=== PATIENT | male | born 1955 | race Caucasian/White ===

== ENCOUNTER → 2017-11-05 08:03 | Outpatient (CLI) | payer OTHER, SELFPAY ==
[2017-11-05 09:01] LABS: Add Manual Diff / Slide Review NO; Basophils Percent Auto 0.5 % (0-2); Eosinophils Percent Auto 1.9 % (2-4); Hematocrit 41.7 % (41-53); Hemoglobin 14.3 g/dL (13.5-17.5); Lymphocytes Percent Auto 20.1 % (25-40); Mean Corpuscular HGB Conc 34.4 % (30-36); Mean Corpuscular Hemoglobin 29.7 PG (26-34); Mean Corpuscular Volume 86.5 fL (80-100); Monocytes Percent Auto 7.5 % (3-14); Neutrophils Absolute Auto 7000 /uL (3000-5900); Platelet Count 207 X10^3/uL (150-400); Red Blood Cell Count 4.83 X10^6/uL (4.5-5.9); Red Cell Distribution Width 13.7 % (11.6-14.8); White Blood Cell Count 10.1 X10^3/uL (4.5-11.0)
[2017-11-05 09:07] LABS: Hemoglobin A1C% w Est Avg Glu 7.8 % (4.0-6.0)
[2017-11-05 09:08] LABS: Alanine Aminotransferase 39 IU/L (21-72); Albumin 4.3 g/dL (3.5-5.0); Albumin Globulin Ratio 1.3 (1.0-2.8); Alkaline Phosphatase 59 U/L (38-126); Aspartate Aminotransferase 20 IU/L (17-59); BUN Creatinine Ratio 31.3 (6-22); Bilirubin Total 0.4 mg/dL (0.2-1.3); Blood Urea Nitrogen 25 mg/dL (9-20); Calcium 9.3 mg/dL (8.4-10.2); Carbon Dioxide 26 mmol/L (22-32); Chloride 108 mmol/L (98-107); Cholesterol 134 mg/dL (140-199); Estimated Glomerular Filt Rate > 60.0 mL/min (>60); Globulin 3.2 g/dL (1.7-4.1); Glucose 164 mg/dL (80-110); HDL Cholesterol 30 mg/dL (40-60); HEMOLYSIS < 15 (0-50); LDL Cholesterol Calculated 53 mg/dL (<100); Potassium 4.3 mmol/L (3.4-5.1); Sodium 147 mmol/L (137-145); Total Protein 7.5 g/dL (6.3-8.2); Triglycerides 254 mg/dL (35-150)
[2017-11-05 09:34] LABS: Prostate Specific Antigen 0.991 ng/mL (0.10-4.00)
[2017-11-05 09:46] LABS: Thyroid Stimulating Hormone 3.48 uIU/mL (0.47-4.68)
== END ==
PROVIDERS: PCP Family Medicine; Visit Provider Family Medicine
DX: I10 Essential (primary) hypertension (principal); E78.2 Mixed hyperlipidemia; N40.1 Benign prostatic hyperplasia with lower urinary tract symptoms; N13.8 Other obstructive and reflux uropathy; E11.9 Type 2 diabetes mellitus without complications
CPT/HCPCS: 36415; 80053; 80061; 83036; 84153; 84443; 85025

== ENCOUNTER → 2017-12-11 08:23 | Outpatient (CLI) | payer OTHER, SELFPAY ==
--- NOTE | 2017-12-11 08:25 | DI.US.S_ITS ---
PROCEDURE: US EXTREMELY NONVASC UPPER RT INDICATIONS: right mass in armpit TECHNIQUE: Real-time scanning was performed of the right axilla, with image documentation. COMPARISON: None. FINDINGS: No abnormality found. IMPRESSION: No lesion identified. It is possible that a lipoma is present as cause of the current symptomatology. If clinical concerns persist or increase MR scanning with contrast may be warranted. MR scanning can detect the boundaries of a lipoma that may not be identifiable by ultrasound. A solid or cystic mass is not seen. Dictated by: Seferino Deutsch M.D. on 12/11/2017 at 9:42 Approved by: Seferino Deutsch M.D. on 12/11/2017 at 9:43
== END ==
PROVIDERS: PCP Family Medicine; Visit Provider Family Medicine
DX: R22.31 Localized swelling, mass and lump, right upper limb (principal)
CPT/HCPCS: 76882

== ENCOUNTER → 2018-02-06 08:37 | Outpatient (CLI) | payer OTHER, SELFPAY ==
[2018-02-06 09:57] LABS: Hemoglobin A1C% w Est Avg Glu 6.9 % (4.0-6.0)
== END ==
PROVIDERS: PCP Family Medicine; Visit Provider Family Medicine
DX: E11.9 Type 2 diabetes mellitus without complications (principal); E78.2 Mixed hyperlipidemia
CPT/HCPCS: 36415; 83036

== ENCOUNTER 2018-02-28 07:04 | Day surgery (SDC) | payer OTHER, SELFPAY ==
--- NOTE | 2018-02-28 | PATH_ITS ---
[facility] Accession Number: [id number] . 01 Material submitted: . PART A: POLYP AT 35 PART B: POLYP AT 25 . 02 Diagnosis: A. Colon, Polyp at 35, Biopsy: Colonic mucosa with no diagnostic abnormality, consistent with polypoid redundancy. Additional levels were examined. Negative for dysplasia and malignancy. . B. Polyp at 25, Biopsy: Hyperplastic polyp. MRV/03/04/2018 . 02 Electronically signed: . Ann Marie Pugh MD, Pathologist NPI- [id number] . 01 Gross description: . Received two formalin-filled containers, both labeled with the patient's name: . A. In a container labeled polyp at 35, the specimen consists of a 0.3 cm portion of tissue, entirely submitted in cassette A. B. In a container labeled polyp at 25, the specimen consists of a 0.2 cm portion of tissue, entirely submitted in cassette B. ([id number]) /FRR . 02 Pathologist provided ICD-10: K63.5 . 02 CPT . 062016, [id number] Performed at: 01 [facility] [address] [id number] MD Ziyad Burnett MD Phone: [phone] Performed at: 02 [facility] [address] [place], [place] [id number] MD Ann Marie Pugh MD Phone: [phone]
[2018-02-28 07:56] VITALS: BP 154/81; PULSE 85; RESP 16; TEMP 36.6; O2SAT 97; BMI 30.9
[2018-02-28] MEDS: SODIUM CHLORIDE 0.9% 1,000 ML 150 ML IV (08:15)
[2018-02-28] MEDS: MIDAZOLAM 5 MG/5 ML VIAL IV (09:27)
[2018-02-28] MEDS: fentaNYL 250 MCG/5 ML INJ IV (09:28)
[2018-02-28 09:30] VITALS: BP 138/84; PULSE 90; RESP 12; TEMP 36.8; O2SAT 93
--- NOTE | 2018-02-28 09:30 | P.HP_ITS ---
History of Present Illness Date Patient Seen: 02/28/18 Time Patient Seen: 09:28 Chief complaint: colonoscopy [id number] Narrative: 62-year-old gentleman who is here for a colonoscopy. His last colonoscopy was about 5 years ago. He has a history of colorectal polyps personally and also family history of colon cancer. He denies any problems or symptoms related to the function of his GI tract. He reports he is here for colonoscopy as part of the maintenance program. Patient History Medical History Arthritis of knee (Chronic ~1989) Colon polyps (Chronic ~2002) Diabetes mellitus (Chronic ~2011) Hypertension (Chronic ~2010) Seasonal allergies (Chronic) Thyroid nodule (Chronic ~2011) Chicken pox (Resolved) Measles (Resolved) Shingles (Resolved) Surgical History Anesthesia (Resolved) History of thyroidectomy (~2009) Status post arthroscopy (~2008) Status post colonoscopy Family & Social History Family History: Reviewed 02/28/18 by Kizzy Haley MD Social History: household members spouse Tobacco & Substance use: Smoking Status Never smoker Meds Home Medications Medication Instructions Recorded Confirmed Type aspirin 81 mg PO QDAY #0 10/04/10 02/28/18 History flu vac [id number] 36mos up(PF) 0.5 ml IM X1 #1 ea 11/09/15 11/13/17 Rx [Fluzone Quad 0649-8155 (PF)] flu vac [id number] 36mos up(PF) 0.5 ml IM X1 #1 ea 11/09/15 11/13/17 Rx [Fluzone Quad 7926-2504 (PF)] amlodipine [Norvasc] 2.5 mg PO QDAY #90 tab 11/12/17 02/28/18 Rx atorvastatin [Lipitor] 10 mg PO HS #90 tab 11/12/17 02/28/18 Rx lisinopril 40 mg PO BID #180 tab 12/10/17 02/28/18 Rx metformin [Glucophage] 500 mg PO 4-6XD 02/28/18 History Allergies Allergy/AdvReac Type Severity Reaction Status Date / Time cat pelt standardized Allergy Mild runny Verified 02/28/18 09:08 allergenic ex nose, rash [CAT PELT STANDARDIZED EXTRACT] Milk Containing Products Allergy Mild Verified 02/28/18 09:08 [MILK CONTAINING PRODUCTS] No Known Drug Allergies Allergy Unknown Verified 02/28/18 09:08 [NO KNOWN DRUG ALLERGIES] Review of Systems Review of Systems All systems reviewed & are unremarkable except as noted in HPI and below Exam Vital Signs (past 8 hours): - 02/28/18 07:56 Temperature 97.9 F Pulse Rate 85 Respiratory Rate 16 Blood Pressure 154/81 H Pulse Oximetry 97 Oxygen Delivery Method Room Air Narrative Exam Narrative: Well-nourished well-developed 62-year-old gentleman in no distress HEENT: Normocephalic and atraumatic, pupils equal round reactive to light accommodation with anicteric sclera Lungs: Clear bilaterally Heart: Regular rate and rhythm without murmur rub or gallop Abdomen: Soft, nontender, active bowel sounds Extremities: Warm and well perfused Assessment & Plan Plan: Assessment/Plan Narrative: 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 He presents today for screening colonoscopy. We discussed the risks and benefits of the procedure the patient expressed desire to complete it today.
--- NOTE | 2018-02-28 09:30 | PM.OP.1 ---
Operative Date/Time/Diagnoses Date of procedure: 02/28/18 Time of procedure: 09:30 Pre-op diagnosis: Personal history of polyps Family history of colon cancer Screening Post-op diagnosis: same Procedure & Clinicians Procedure: Colonoscopy to the cecum with polypectomy x2 Same procedure as scheduled: Yes Indications: Last colonoscopy 5 years ago Surgeon: Kizzy Haley Anesthesia Type: Sedation (Versed 5 mg; fentanyl 200 mcg) Operative Notes Findings: 1. Excellent prep 2. Two diminutive polyps. One at 35 cm from the anal verge and 1 at 25 cm from the anal verge. Both were removed and retained for pathology. Both were removed with cold forceps. 3. Sigmoid diverticulosis without evidence of diverticulitis 4. No AV malformations 5. Grade 1-2 internal hemorrhoids Closure Type: not applicable Specimen(s): other (Two polyps removed and retained for pathology) Estimated Blood Loss (mL): 1 Procedure in detail: After obtaining informed consent, the patient was brought to the GI suite and placed in the left lateral decubitus position on the examination table. After placement of appropriate monitors, the patient was given incremental doses of Versed and Fentanyl until an appropriate level of sedation was achieved. A time out was held per SCOAP protocol. A digital rectal examination was performed and did not reveal any masses or obstructing lesions. The colonoscope was gently passed into the patient's anus and the entire colon navigated to the level of the cecum with minimal difficulty. Once in the cecum, the scope was withdrawn being sure to go before and beyond all mucosal folds and prominences and get an excellent examination. The findings are noted above. At the level of the rectal vault, the scope was retroflexed and the internal anal canal was examined. The scope was straightened and air aspirated from the colon. The instrument was removed from the patient's body and the procedure was concluded. The patient was allowed to awaken from sedation without difficulty and taken to the post-anesthesia care unit in good condition. Total sedation time was 28 min Total withdrawal time was 11 min 28 sec Condition: stable Disposition: PACU Plan for aftercare: 1. Discharge to home 2. Plan for next colonoscopy in 5 years or as clinically indicated
[2018-02-28 09:35] VITALS: BP 131/84; PULSE 83; RESP 14; TEMP 36.7; O2SAT 92
[2018-02-28 09:39] VITALS: BP 138/83; PULSE 87; RESP 16; TEMP 37.1; O2SAT 97
== END 2018-02-28 09:55 | disposition home or self-care (01) ==
PROVIDERS: PCP Family Medicine; Visit Provider Surgery
PROC: 0DJD8ZZ Inspection of Lower Intestinal Tract, Via Natural or Artificial Opening Endoscopic (ICD-10-PCS; CPT 45378; principal; 2018-02-28 08:45)
DX: Z86.010 Personal history of colon polyps (principal); Z80.0 Family history of malignant neoplasm of digestive organs; K57.30 Diverticulosis of large intestine without perforation or abscess without bleeding; K64.1 Second degree hemorrhoids; E11.9 Type 2 diabetes mellitus without complications; I10 Essential (primary) hypertension; Z79.84 Long term (current) use of oral hypoglycemic drugs
CPT/HCPCS: 45380; 99152; 99153; J2250; J3010

== ENCOUNTER → 2018-11-04 07:52 | Outpatient (CLI) | payer OTHER, SELFPAY ==
[2018-11-04 08:24] LABS: Add Manual Diff / Slide Review NO; Basophils Absolute Auto 0 /uL (0-100); Basophils Percent Auto 0.6 % (0-2); Eosinophils Absolute Auto 200 /uL (0-450); Hemoglobin 13.7 g/dL (13.5-17.5); Lymphocytes Absolute Auto 2100 /uL (1100-4500); Mean Corpuscular HGB Conc 34.4 % (30-36); Mean Corpuscular Hemoglobin 29.8 PG (26-34); Mean Corpuscular Volume 86.7 fL (80-100); Monocytes Absolute Auto 500 /uL (0-900); Monocytes Percent Auto 7.5 % (3-14); Neutrophils Absolute Auto 4100 /uL (1500-7000); Neutrophils Percent Auto 58.9 % (50-75); Platelet Count 204 X10^3/uL (150-400); Red Blood Cell Count 4.61 X10^6/uL (4.5-5.9); Red Cell Distribution Width 13.6 % (11.6-14.8); White Blood Cell Count 6.9 X10^3/uL (4.5-11.0)
[2018-11-04 08:39] LABS: Hemoglobin A1C% w Est Avg Glu 7.9 % (4.0-6.0)
[2018-11-04 08:44] LABS: Alanine Aminotransferase 42 IU/L (21-72); Albumin 4.2 g/dL (3.5-5.0); Albumin Globulin Ratio 1.5 (1.0-2.8); Alkaline Phosphatase 66 U/L (38-126); Aspartate Aminotransferase 21 IU/L (17-59); BUN Creatinine Ratio 23.3 (6-22); Bilirubin Total 0.4 mg/dL (0.2-1.3); Blood Urea Nitrogen 21 mg/dL (9-20); Calcium 9.6 mg/dL (8.4-10.2); Carbon Dioxide 25 mmol/L (22-32); Chloride 106 mmol/L (98-107); Cholesterol 144 mg/dL (140-199); Estimated Glomerular Filt Rate > 60.0 mL/min (>60); Globulin 2.8 g/dL (1.7-4.1); Glucose 204 mg/dL (80-110); HDL Cholesterol 38 mg/dL (40-60); HEMOLYSIS < 15 (0-50); LDL Cholesterol Calculated 77 mg/dL (<100); Potassium 4.3 mmol/L (3.4-5.1); Sodium 142 mmol/L (137-145); Triglycerides 147 mg/dL (35-150)
[2018-11-04 09:14] LABS: Prostate Specific Antigen Scrn 1.16 ng/mL (0.1-4.0)
[2018-11-04 11:31] LABS: Creatinine Urine Random 285.4 mg/dL
[2018-11-04 11:34] LABS: Microalbumi Creatinin Ratio Ur 21.7 ug/mg CR (<30); Microalbumin Urine Random 6.2 mg/dL (0-1.6)
== END ==
PROVIDERS: PCP Family Medicine; Visit Provider Family Medicine
DX: E78.2 Mixed hyperlipidemia (principal); I10 Essential (primary) hypertension; N13.8 Other obstructive and reflux uropathy; N40.1 Benign prostatic hyperplasia with lower urinary tract symptoms; Z12.5 Encounter for screening for malignant neoplasm of prostate; Z13.1 Encounter for screening for diabetes mellitus; Z13.29 Encounter for screening for other suspected endocrine disorder
CPT/HCPCS: 36415; 80053; 80061; 82043; 82570; 83036; 85025; G0103

== ENCOUNTER → 2019-02-17 08:05 | Outpatient (CLI) | payer OTHER, SELFPAY ==
[2019-02-17 10:44] LABS: Hemoglobin A1C% w Est Avg Glu 6.6 % (4.0-6.0)
[2019-02-17 10:46] LABS: BUN Creatinine Ratio 24.4 (6-22); Blood Urea Nitrogen 22 mg/dL (9-20); Calcium 9.1 mg/dL (8.4-10.2); Carbon Dioxide 27 mmol/L (22-32); Chloride 105 mmol/L (98-107); Estimated Glomerular Filt Rate > 60.0 mL/min (>60); Glucose 189 mg/dL (80-110); HEMOLYSIS < 15 (0-50); Potassium 4.1 mmol/L (3.4-5.1); Sodium 143 mmol/L (137-145)
== END ==
PROVIDERS: PCP Family Medicine; Visit Provider Family Medicine
DX: E11.9 Type 2 diabetes mellitus without complications (principal)
CPT/HCPCS: 36415; 80048; 83036

== ENCOUNTER → 2020-01-27 10:35 | Outpatient (CLI) | payer OTHER, SELFPAY ==
[2020-01-27 12:57] LABS: Add Manual Diff / Slide Review NO; Basophils Absolute Auto 0 /uL (0-100); Basophils Percent Auto 0.6 % (0-2); Eosinophils Absolute Auto 100 /uL (0-450); Eosinophils Percent Auto 1.7 % (2-4); Lymphocytes Absolute Auto 2100 /uL (1100-4500); Lymphocytes Percent Auto 26.6 % (25-40); Mean Corpuscular Hemoglobin 29.5 PG (26-34); Mean Corpuscular Volume 86.9 fL (80-100); Monocytes Absolute Auto 500 /uL (0-900); Monocytes Percent Auto 6.6 % (3-14); Neutrophils Absolute Auto 5000 /uL (1500-7000); Neutrophils Percent Auto 64.5 % (50-75); Platelet Count 228 X10^3/uL (150-400); Red Blood Cell Count 4.72 X10^6/uL (4.5-5.9); White Blood Cell Count 7.8 X10^3/uL (4.5-11.0)
[2020-01-27 13:33] LABS: Hemoglobin A1C% w Est Avg Glu 8.1 % (4.0-6.0)
[2020-01-27 13:39] LABS: Alanine Aminotransferase 41 IU/L (<50); Albumin 4.4 g/dL (3.5-5.0); Albumin Globulin Ratio 1.5 (1.0-2.8); Alkaline Phosphatase 65 U/L (38-126); Aspartate Aminotransferase 24 IU/L (17-59); BUN Creatinine Ratio 23.4 (6-22); Bilirubin Total 0.4 mg/dL (0.2-1.3); Blood Urea Nitrogen 18 mg/dL (9-20); Calcium 9.7 mg/dL (8.4-10.2); Carbon Dioxide 27 mmol/L (22-32); Chloride 105 mmol/L (98-107); Cholesterol 151 mg/dL (140-199); Estimated Glomerular Filt Rate > 60.0 mL/min (>60); Globulin 2.9 g/dL (1.7-4.1); Glucose 229 mg/dL (80-110); HDL Cholesterol 35 mg/dL (40-60); HEMOLYSIS < 15 (0-50); LDL Cholesterol Calculated 77 mg/dL (<100); Potassium 4.4 mmol/L (3.4-5.1); Sodium 142 mmol/L (137-145); Total Protein 7.3 g/dL (6.3-8.2); Triglycerides 194 mg/dL (35-150)
[2020-01-27 14:05] LABS: Prostate Specific Antigen Scrn 1.26 ng/mL (0.1-4.0)
[2020-01-27 15:41] LABS: Creatinine Urine Random 200.9 mg/dL
[2020-01-27 16:02] LABS: Microalbumi Creatinin Ratio Ur 114.4 ug/mg CR (<30)
== END ==
PROVIDERS: PCP Family Medicine; Referring Provider Family Medicine; Visit Provider Family Medicine
DX: E11.9 Type 2 diabetes mellitus without complications (principal); Z12.5 Encounter for screening for malignant neoplasm of prostate; E78.2 Mixed hyperlipidemia; I10 Essential (primary) hypertension; M25.561 Pain in right knee; M25.562 Pain in left knee; N13.8 Other obstructive and reflux uropathy; N40.1 Benign prostatic hyperplasia with lower urinary tract symptoms
CPT/HCPCS: 36415; 80053; 80061; 82043; 82570; 83036; 85025; G0103

== ENCOUNTER → 2020-03-31 08:10 | Outpatient (CLI) | payer OTHER, SELFPAY ==
[2020-03-31 09:00] LABS: Hemoglobin A1C% w Est Avg Glu 7.4 % (4.0-6.0)
== END ==
PROVIDERS: PCP Family Medicine; Referring Provider Orthopaedic Surgery Adult Reconstructive Orthopaedic Surgery; Visit Provider Orthopaedic Surgery Adult Reconstructive Orthopaedic Surgery
DX: Z01.818 Encounter for other preprocedural examination (principal); M25.562 Pain in left knee
CPT/HCPCS: 36415; 83036

== ENCOUNTER → 2020-04-30 08:17 | Outpatient (CLI) | payer OTHER, SELFPAY ==
[2020-04-30 09:19] LABS: Hemoglobin A1C% w Est Avg Glu 6.4 % (4.0-6.0)
[2020-04-30 09:48] LABS: BUN Creatinine Ratio 20.4 (6-22); Blood Urea Nitrogen 21 mg/dL (9-20); Calcium 9.7 mg/dL (8.4-10.2); Carbon Dioxide 29 mmol/L (22-32); Chloride 104 mmol/L (98-107); Estimated Glomerular Filt Rate > 60.0 mL/min (>60); Glucose 149 mg/dL (80-110); HEMOLYSIS < 15 (0-50); Potassium 4.4 mmol/L (3.4-5.1); Sodium 139 mmol/L (137-145)
== END ==
PROVIDERS: Family Medicine; PCP Family Medicine; Referring Provider Orthopaedic Surgery Adult Reconstructive Orthopaedic Surgery; Visit Provider Orthopaedic Surgery Adult Reconstructive Orthopaedic Surgery
DX: M17.0 Bilateral primary osteoarthritis of knee; E11.9 Type 2 diabetes mellitus without complications; M25.562 Pain in left knee; I10 Essential (primary) hypertension
CPT/HCPCS: 36415; 80048; 83036

== ENCOUNTER → 2020-07-01 07:51 | Outpatient (CLI) | payer OTHER, SELFPAY ==
[2020-07-01 09:11] LABS: Add Manual Diff / Slide Review NO; Basophils Absolute Auto 0 /uL (0-100); Basophils Percent Auto 0.6 % (0-2); Eosinophils Absolute Auto 200 /uL (0-450); Eosinophils Percent Auto 2.5 % (2-4); Hematocrit 40.9 % (41-53); Hemoglobin 13.6 g/dL (13.5-17.5); Lymphocytes Absolute Auto 2200 /uL (1100-4500); Mean Corpuscular HGB Conc 33.2 % (30-36); Mean Corpuscular Hemoglobin 29.5 PG (26-34); Mean Corpuscular Volume 88.7 fL (80-100); Monocytes Absolute Auto 500 /uL (0-900); Monocytes Percent Auto 7.6 % (3-14); Neutrophils Absolute Auto 4000 /uL (1500-7000); Neutrophils Percent Auto 57.3 % (50-75); Platelet Count 212 X10^3/uL (150-400); Red Cell Distribution Width 13.4 % (11.6-14.8)
[2020-07-01 09:56] LABS: BUN Creatinine Ratio 29.8 (6-22); Blood Urea Nitrogen 25 mg/dL (9-20); Calcium 9.5 mg/dL (8.4-10.2); Carbon Dioxide 25 mmol/L (22-32); Chloride 105 mmol/L (98-107); Estimated Glomerular Filt Rate > 60.0 mL/min (>60); Glucose 182 mg/dL (80-110); HEMOLYSIS < 15 (0-50); Potassium 4.8 mmol/L (3.4-5.1); Sodium 141 mmol/L (137-145)
[2020-07-01 17:07] LABS: Hemoglobin A1C% w Est Avg Glu 5.7 % (4.0-6.0)
== END ==
PROVIDERS: PCP Family Medicine; Referring Provider Orthopaedic Surgery Adult Reconstructive Orthopaedic Surgery; Visit Provider Orthopaedic Surgery Adult Reconstructive Orthopaedic Surgery
DX: Z01.818 Encounter for other preprocedural examination (principal); R73.9 Hyperglycemia, unspecified; Z01.812 Encounter for preprocedural laboratory examination
CPT/HCPCS: 36415; 80048; 83036; 85025; 93005; 93010

== ENCOUNTER → 2020-07-19 08:59 | Outpatient (CLI) | payer OTHER, SELFPAY ==
[2020-07-19 11:22] LABS: COVID19 -Nasal RAPID Negative (Negative)
== END ==
PROVIDERS: PCP Family Medicine; Visit Provider Student in an Organized Health Care Education/Training Program
DX: Z01.812 Encounter for preprocedural laboratory examination (principal); Z20.822 Contact with and (suspected) exposure to COVID-19
CPT/HCPCS: 87635; C9803

== ENCOUNTER 2020-07-22 08:01 | Inpatient (IN) | payer OTHER, SELFPAY ==
[2020-07-13 08:25] VITALS: BMI 30.9
[2020-07-21] VITALS (13 sets, daily range): BP systolic 135–168; BP diastolic 71–91; PULSE 67–89; RESP 12–18; TEMP 35.9–36.8; O2SAT 91–99; BMI 30.9
--- NOTE | 2020-07-21 08:32 | PM.PREOP ---
Pre-operative Note COVID-19 COVID-19 status: Negative Result date/Date tested (Pos, Neg/Pending): 07/19/20 Interval Note History & Physical reviewed/Exam performed by Physician: Yes Changes to H&P: No H&P completed within 30 days and has changed as indicated here:: Plan for L TKA and right knee steroid injection
--- NOTE | 2020-07-21 08:34 | DI.RAD.S_ITS ---
PROCEDURE: XR KNEE LT 1TO2V INDICATIONS: post operative left knee TECHNIQUE: 2 view(s) of the knee acquired. COMPARISON: [facility], , KNEE 3V LEFT, 11/09/2015, 10:38. FINDINGS: Bones: Patient is status post knee joint arthroplasty. Hardware components are in expected positions. Visualized bony structures are intact. Soft tissues: Overlying postoperative changes are noted. IMPRESSION: Expected postsurgical changes as above. Dictated by: Crys Mi M.D. on 07/21/2020 at 11:47 Approved by: Crys Mi M.D. on 07/21/2020 at 11:47
[2020-07-21] MEDS: ACETAMINOPHEN 325 MG TABLET 975 MG PO (08:38)
[2020-07-21] MEDS: CELECOXIB 200 MG CAPSULE PO (08:38)
[2020-07-21] MEDS: LACTATED RINGERS 1,000 ML 42 ML IV (08:39)
[2020-07-21] MEDS: CEFAZOLIN 1 GM VIAL 2 GM IV ×2 (09:00→19:20)
[2020-07-21] MEDS: TRANEXAMIC ACID 1,000 MG VIAL 2000 MG INJ ×2 (09:00→10:22)
--- NOTE | 2020-07-21 09:23 | SUR.OPER ---
Supine on padded OR bed, head on pillow, arms secured on padded arm boards at <90 degrees abduction, Dr. Murrieta knee positioner, legs uncrossed, safety belt at thigh, padded foam brace at thigh, tape over blanket over right lower leg.
[2020-07-21] MEDS: ROPIVACAINE 0.5% PF 5 MG/ML 20ML VIAL 10 ML INJ (09:35)
[2020-07-21] MEDS: KETOROLAC 30 MG/ML VIAL IV (09:35)
[2020-07-21] MEDS: MORPHINE 4 MG/ML INJ INJ (09:36)
--- NOTE | 2020-07-21 10:51 | P.OP_ITS ---
Operative Date/Time/Diagnoses Date of procedure: 07/21/20 Time of procedure: 10:51 Pre-op diagnosis: left knee OA Post-op diagnosis: same Procedure & Clinicians Procedure: left TKA Same procedure as scheduled: Yes Indications: Severe left knee osteoarthritis resistant to further conservative measures Surgeon: Rell Murrieta Outer Diameter Grinder: Colt Ruiz Anesthesia Type: General and Spinal Operative Notes Findings: left knee osteoarthritis with 5 degree flexion contracture and flexion range of motion to 100?. Large osteophytes in the posterior aspect of the knee as well as the anterior aspect of the knee. Closure Type: primary Specimen(s): none sent Prosthetic devices, grafts, tissues, transplants, or devices: Johns and nephew Journey 2 BCS Oxinium femoral component size 7, left Journey size 7, left tibial base plate Journey 2 BCS XLPE 10 mm left, size 7-8 38 mm oval Mila 2 patellar button Estimated Blood Loss (mL): 100 Blood products transfused: none Tourniquet time (min): 62 Procedure in detail: patient was met in the preoperative holding area where the site and side of surgery marked by . Informed consent had been reviewed in clinic was also reviewed the preoperative holding area all last minute questions were answered. Patient then brought back in the operating room where he received spinal anesthetic. A nonsterile tourniquet was then placed on the left thigh and he was induced under general anesthesia. The left lower extremity then prepped and draped in normal sterile fashion. A surgical time-out was performed verifying the site and side of surgery as well and the patient. A Esmarch was then used to exsanguinate the left lower extremity and the tourniquet was inflated 250 mmHg. A linear incision over the left knee was made approximately 10-12 cm in length a new 10. Blade was then used to elevate medial lateral flaps. The medial parapatellar arthrotomy was then marked and made with a new 10. Blade. Hoffa's fat pad was then removed. Medial peel was then performed which was quite large on this patient due to his overall varus alignment of his extremity which was non correctable on exam. Lateral meniscus was then removed as well as the ACL. Crenshaw's line was then marked as well as the entry site for the femoral drill as well as the tibial drill. Femoral osteophytes and tibial osteophytes patellar osteophytes removed which were easily accessible. Drill was then used into the femoral canal and tibial canals respectively. Intramedullary sia was then placed inside the femur and a 5 degree cutting block was then placed on the left distal femur. This was initially cut the neutral slot however I then took 2 more mm as he had a flexion contracture preoperatively. I then placed the sia in the intramedullary canal of the tibia and the outrigger jig was then used to pin our tibial cutting block in place. A drop sia was then used to verify alignment and the 3rd pin was then placed. Tibial cut was then made skimming underneath the subchondral bone on the medial side. Most of the tibial cut was able to be removed in 1 piece however there were large fragments of bone posterior aspect of the knee which could not be removed the initial cut. This point we could see the PCL was imbedded in quite a bit of osteophyte posteriorly and in the FPL remove sufficient osteophyte without the stabilizing the PCL at this point I removed the PCL and we converted to BCS. I then used the saw blade to then further cut into the osteophytes and posterior aspect of the knee I then used a combination of a curved osteotome as well as a curved curette to remove these bony fragments. At this point because that we been doing considerable will work in the back of the knee we let down the tourniquet to see if there is any uncontrolled bleeding. There was not. Tourniquet was then reinflated. Knee was then brought into full extension and a 9 mm thick extension block fit in the extension spaced was balanced. We then the knee into flexion and the gap electric cutter operator was then used to drill our 5 in 1 cutting block holes. This was then compared to Simon line which showed external rotation. Initially sized to a size 8 however after making the initial anterior cut we saw that we could downsize to a size 7. The 5 1 cutting block for the size 7 was then placed and pinned in place 5 in 1 cuts were then made sequentially. Cutting block was then removed the bone cuts were then removed and a curved osteotome was then used to remove osteophytes from the posterior aspect of the femur. Rongeur was then able to remove these bony fragments. The size 7 femoral trial was then malleted into place and the box was then drilled and prepped. A size 7 tibial base plate with 9 mm thick BCS polyethylene was then placed the knee was brought through range of motion he had full extension and his knee was stable to varus and valgus stress at full extension through mid flexion flexion range of motion. The patella was then freehand cut and sized to a size 38 mm patellar button this was then drilled and a 3 mm trial was then placed. Knee was brought through range of motion with excellent patellar tracking. the tibial base plate external rotation was then marked using a floating technique. Trial was then removed in the site size 7 tibial base plate was then returned to the tibia pinned in place and the keel was then drilled and punched. Tibial base plate was then removed local anesthetic was then infiltrated into the periarticular soft tissues including the back the knee. Pulse lavage was then used to clean the cut surface of the femur tibia and patella. Cut surfaces the wound then dried as well with suction and a dry lap. Cement was then mixed. Cement was then placed on the undersurface of the tibial base plate and was finger packed into the keel in the cut surface of the tibia. Tibial base plate was then malleted into place and excess cement was removed. Cement was then finger packed on the cut surface of the femur with the exception of the posterior condylar cut some was then placed on the feet of the femoral component this was also malleted into place and excess cement was removed. A size 9 mm thick polyethylene trial was then placed the knee was brought into full extension ankle was held in internal rotation. Stem was then finger packed onto the cut surface of the patella and between the patellar button this was then clamped in place excess cement was removed. Betadine solution was then placed in the wound tourniquet was let down at 62 minutes of time. Betadine solution was then lavaged with copious normal saline. The cement was allowed to fully cure prior to manipulation of the knee. Once the cement was fully cured the knee was manipulated the polyethylene trial was removed I then trialed a 10 mm thick polyethylene which increased flexion stability I was still able to achieve full extension. I then selected a size 10 mm thick polyethylene. This was then placed making sure the medial lateral tabs were well engaged. The knee was then thoroughly irrigated 1 last time with pulse lavage normal saline the medial patellar parapatellar arthrotomy was then closed using 1. Vicryl interrupted fashion followed by running Quill suture followed by 2 Vicryl interrupted fashion in the subcutaneous layer followed by a running 3-0 Stratafix in the subcuticular layer followed by Dermabond and Aquacel dressing. Complications: none Post-operative Condition: stable Disposition: PACU Plan for aftercare: 24 hours post-op abx, ASA 81mg BID for DVT prophylaxis, WBAT RLE
[2020-07-21] MEDS: LACTATED RINGERS 1,000 ML 100 ML IV ×2 (11:57→22:26)
[2020-07-21] MEDS: ONDANSETRON 4 MG/2 ML INJ IV ×3 (13:15→21:03)
--- NOTE | 2020-07-21 15:27 | PC.NURSE ---
BP: 147/78. Temp 97.8F. All other vitals stable. Came to unit at 2:53 from PACU. Cory wrap to left knee, cdi. Ice applied to knee. Ate his whole lunch and then 30 min later was feeling nauseous. Gave 4mg IV zofran with no improvement. Patient proceeded to vomit at 1500, two unmeasured and one 450 cc. Pain 2/10 upon arrival to unit, now 6/10 and requesting pain medication. All pain meds currently PO, so oncoming evening nurse called for IV pain med options. Call light within reach, bed low.
[2020-07-21] MEDS: HYDROMORPHONE 0.5 MG INJ IV ×3 (15:36→23:57)
--- NOTE | 2020-07-21 16:12 | PT-IP ANOTE ---
checked with nurse x 2 and stated that pt is nauseated and is not ready for PT. checked with pt and spouse in room. pt c/o nausea and is not ready for PT. post-op folder provided to pt. will f/u tomorrow.
[2020-07-21] MEDS: ACETAMINOPHEN 325 MG TABLET 650 MG PO ×2 (17:28→20:38)
[2020-07-21] MEDS: lisinopriL 20 MG TABLET 40 MG PO (20:39)
[2020-07-21] MEDS: DOCUSATE 100 MG CAPSULE PO (20:39)
[2020-07-21] MEDS: ASPIRIN EC 81 MG TABLET PO (20:40)
[2020-07-21] MEDS: AMLODIPINE 5 MG TABLET 10 MG PO (20:40)
[2020-07-21] MEDS: OXYCODONE IR 10 MG TABLET PO (20:40)
[2020-07-21] MEDS: METFORMIN HCL 500 MG TABLET PO (20:40)
[2020-07-21] MEDS: ATORVASTATIN 20 MG TABLET 10 MG PO (20:44)
--- NOTE | 2020-07-21 21:06 | PC.NURSE ---
Patient experienced an emesis shortly after administration of pain medication. Patient reports pain at 6/10. Medicated with Dilaudid IV per EMAR and Zofran for nausea. Primary RNAspen notified of patient's status.
--- NOTE | 2020-07-21 22:00 | PC.NURSE ---
pt has on/off nausea and vomiting. pain controlled with dilaudid 0.5mg. I gave him his PO pain meds at HS but pt vomited. at 1800 pt's bladder scan was 766cc, in and out cath was 990cc.
[2020-07-21] MEDS: ONDANSETRON 4 MG ODT PO (23:57)
[2020-07-22] VITALS (7 sets, daily range): BP systolic 130–178; BP diastolic 71–85; PULSE 77–103; RESP 16–18; TEMP 36.1–37.6; O2SAT 94–100
[2020-07-22] MEDS: CEFAZOLIN 1 GM VIAL 2 GM IV (02:10)
[2020-07-22] MEDS: HYDROMORPHONE 0.5 MG INJ IV (03:06)
[2020-07-22 05:26] LABS: Hematocrit 35.9 % (41-53); Hemoglobin 11.9 g/dL (13.5-17.5)
[2020-07-22] MEDS: OXYCODONE IR 10 MG TABLET PO ×6 (06:24→23:49)
[2020-07-22] MEDS: ONDANSETRON 4 MG/2 ML INJ IV (06:59)
--- NOTE | 2020-07-22 08:14 | PM.PNPO.1 ---
Subjective Subjective Date Patient Seen: 07/22/20 Time Patient Seen: 08:14 Interval history: Pain moderate. Patient has been nauseous was not able to participate in physical therapy yesterday. Patient has also had difficulty urinating. Patient had difficulty urinating with prior surgery for his thyroid. Urinary retention eventually resolved without medication. Exam Vital Signs (past 8 hours): - 07/22/20 04:22 Temperature 97.4 F L Pulse Rate 80 Respiratory Rate 16 Blood Pressure 178/81 H Pulse Oximetry 98 Oxygen Delivery Method Room Air Oxygen Flow Rate 0 Narrative Exam Narrative: 65-year-old male resting comfortably in bed in no apparent distress. Left knee dressing is clean, dry and intact. Motor functions intact distal left lower extremity. Sensation grossly intact distal left lower extremity. Objective Labs Result Diagrams: 07/22/20 04:56 Labs: Laboratory Results - last 24 hr 07/22/20 04:56 Hgb 11.9 L Hct 35.9 L PFSH Medical History Arthritis of knee (~1989) Chicken pox Colon polyps (~2002) Diabetes mellitus (~2011) Diverticulosis HLD (hyperlipidemia) Hypertension (~2010) Measles Osteoarthritis of left knee Seasonal allergies Shingles Thyroid nodule (~2011) Surgical History Anesthesia History of colonoscopy with polypectomy (02/28/18) History of thyroidectomy (~2009) Status post arthroscopy (~2008) Status post colonoscopy Family History Father Heart disease Hypertension Hyperlipidemia Mother Cancer Diabetes mellitus Brother Cancer Hypertension Brother Cancer Hypertension Sister Cancer Sister Cancer Social History household members: spouse Smoking Status: Never smoker alcohol intake: never Assessment & Plan Post-op Postoperative Procedures: Procedures Operation Date: 07/21/20 08:45 Actual Procedures Side Surgeon p Total Knee Arthroplasty Left Rell Murrieta MD postop day 1 status post left total knee arthroplasty. Patient progressing as expected. Continue work on pain management and nausea. Patient required straight catheter x 2 for urinary retention. Will start him on Flomax today. Likely discharge home tomorrow. Quality VTE Deep Vein Thrombosis/Pulmonary Embolism Present on Admission: No
[2020-07-22] MEDS: AMLODIPINE 5 MG TABLET 10 MG PO ×2 (09:12→20:31)
[2020-07-22] MEDS: ASPIRIN EC 81 MG TABLET PO ×2 (09:12→20:32)
[2020-07-22] MEDS: TAMSULOSIN 0.4 MG CAPSULE PO (09:12)
[2020-07-22] MEDS: GLIMEPIRIDE 2 MG TABLET PO (09:12)
[2020-07-22] MEDS: METFORMIN HCL 500 MG TABLET 1000 MG PO (09:12)
[2020-07-22] MEDS: HYDROMORPHONE 2 MG TABLET PO (09:13)
[2020-07-22] MEDS: lisinopriL 20 MG TABLET 40 MG PO ×2 (09:13→20:32)
[2020-07-22] MEDS: ACETAMINOPHEN 325 MG TABLET 650 MG PO ×3 (09:13→20:31)
[2020-07-22] MEDS: DOCUSATE 100 MG CAPSULE PO ×2 (09:13→20:31)
--- NOTE | 2020-07-22 10:30 | PT.IIE ---
Current Diagnoses Unilateral primary osteoarthritis, left knee (07/22/20) Surgery Performed Operation Date: 07/21/20 08:45 Actual Procedures p Total Knee Arthroplasty(Left) - Rell Murrieta MD Surgical History (Last Reviewed 07/22/20 @ 08:16 by Colt Ruiz PA-C) Anesthesia History of colonoscopy with polypectomy (02/28/18) History of thyroidectomy (~2009) Status post arthroscopy (~2008) Status post colonoscopy Medical History (Last Reviewed 07/22/20 @ 08:16 by Colt Ruiz PA-C) Arthritis of knee (~1989) Chicken pox Colon polyps (~2002) Diabetes mellitus (~2011) Diverticulosis HLD (hyperlipidemia) Hypertension (~2010) Measles Osteoarthritis of left knee Seasonal allergies Shingles Thyroid nodule (~2011) Physical Therapy Inpatient Evaluation/Re-Eval M1 PT/OT-IP Prior Functional Status Start: 07/22/20 12:29 Freq: NEEDED Status: Active Protocol: Document 07/22/20 10:30 AB (Rec: 07/22/20 12:44 AB [email or web address]) Medical Review Prior Functional Status Medical History Reviewed Yes Communication able to make needs known Mobility and Gait pt stated that he is independent with all mobilities and ambulation without AD but uses a 4WW when he has increase knee pain Social History Household Members spouse Living Arrangements House Number of Floors (Floors) Two Floors Number of Stairs To Enter/Railing? pt plans to stay on main level of the house 3 steps B rails to enter the house Home Environment High Toilet,Tub/Shower Home Equipment Front Wheel Walker,Four Wheel Walker,Shower Seat with Backrest,Hand Held Shower,Grab Bars Near Toilet,Grab Bars In Shower Additional Social History Comment pt has an adjustable bed with L side rail M2 PT-IP Current Condition Start: 07/22/20 12:29 Freq: NEEDED Status: Active Protocol: Document 07/22/20 10:30 AB (Rec: 07/22/20 12:44 AB [id number]) Physical Therapy Current Condition Current Condition Evaluation Date 07/22/20 Treatment Diagnosis s/p L TKA; difficulty in walking Weight Bearing Status Weight Bearing Status Weight Bear as Tolerated Allowed Weight Bearing Amount (enter % LLE WBAT or #) (%) M3 PT-IP Subjective Start: 07/22/20 12:29 Freq: NEEDED Status: Active Protocol: Document 07/22/20 10:30 AB (Rec: 07/22/20 12:44 AB [id number]) Subjective Physical Therapy Visit Type Type Initial Evaluation Visit Start Time 10:30 Visit Stop Time 11:05 Total Visit Minutes 35 Number of LEAD SPRINKLER Visits 0 Physical Therapy Visit Comments Patient Comments pt is agreeable to do PT; continues to c/o nausea Therapy Pain Assessment Pain When Pain Assessed At Rest Pain Present Pain Present Pain Reported Location left knee Intensity 6 Scale Used Numeric (0 - 10) Pain Management Techniques Apply Cold,Distraction, Modification of Treatment,Re- positioning,Timing of Activity with Medications M4 PT-IP Mobility and Gait Start: 07/22/20 12:29 Freq: NEEDED Status: Active Protocol: Document 07/22/20 10:30 AB (Rec: 07/22/20 12:44 AB [id number]) PT-Bed Mobility Assessment Supine to Sit Supine to Sit Maximum Assistance PT-Transfer Assessment Sit to and From Stand Sit to and from Stand Minimal Assistance,Moderate Assistance,1 Person Assistance ,Use of Upper Extremities Equipment Transfer Assistive Device Gait Belt,Front Wheeled Walker Orthotic/Prosthetic Devices or Brace: No Transfers Transfer Destination Chair Transfer Technique ambulated using FWW Transfer Ability Level of Assist Minimal Assistance,Moderate Assistance,1 Person Assistance ,Use of Upper Extremities Comments Mobility Comments BP in supine: 154/80. completed supine to sit max A requiring assist with LLE support due to c/o increase pain with positioning down to EOB. able to sit on EOB SBA after positioning and LLE resting on floor but with decrease knee flexion. increase guarding noted. pt c /o nausea. BP checked: 158/85 . pt agreed to get up and completed sit to stand min to mod A and cues. ambulated ~ 12 ft towards the chair using FWW min to mod A and cues for L quads activation. pt agreed to stay up on chair but refused further activity. positioned pt on chair. call light and table placed within reach. BP checked: 158/86. Gait Assessment Gait Gait Assistance Required: Minimum Assistance,Moderate Assistance Distance (Feet) 12 Able to Maintain Weight Bearing Status Yes During Gait Assistive Devices Assistive Device Gait Belt,Front Wheeled Walker Orthotic/Prosthetic Devices or Brace: No Gait Deviations General Gait Pattern Antalgic,Decreased Stride Length,Decreased Feet Clearance Factors Limiting Gait Function Factors Limiting Gait Function Decreased Activity Tolerance, Decreased Strength,Limited Range of Motion,Pain,Poor Balance,Poor Safety Awareness PT-Balance Assessment Sitting Balance and Reactions Static Sitting Balance Ability Good Dynamic Sitting Balance Ability Good Standing Balance and Reactions Static Standing Balance Ability Fair Dynamic Standing Balance Ability Fair Device Used FWW M5 PT-IP Objective Assessments Start: 07/22/20 12:29 Freq: NEEDED Status: Active Protocol: Document 07/22/20 10:30 AB (Rec: 07/22/20 12:44 AB [email or web address]) Orientation Orientation/Cognition Level of Alertness Alert Orientation Name,Place,Situation Language Function Ability No Deficits Noted Safety Awareness Decreased Safety Awareness Gross Range of Motion Lower Extremity ROM Assessment Left Impaired Impairments L knee flexion: ~ 30 degrees with increase guarding with movement L knee extension: 10 deg less to 0 Strength Lower Extremity Strength Assessment Left Impaired Knee 3+/5 Sensation Assessment Sensation Gross Sensation WNL Muscle Tone Muscle Tone WNL Yes M6 PT-IP Treatment Start: 07/22/20 12:29 Freq: NEEDED Status: Active Protocol: Document 07/22/20 10:30 AB (Rec: 07/22/20 12:44 AB [email or web address]) Physical Therapy Treatment Exercises Exercises Heel Slides Education Education Provided Precautions,Weight Bearing Status,Post-Op Packet,Safety M7 PT-IP Assessment and Plan Start: 07/22/20 12:29 Freq: NEEDED Status: Active Protocol: Document 07/22/20 10:30 AB (Rec: 07/22/20 12:44 AB [email or web address]) PT Summary Assessment and Plan Potential Rehabilitation Potential Good Status of Condition at Evaluation Evolving Summary Impairments Pain,ROM,Strength,Balance, Coordination,Sensation,Tone, Cognition,Bed Mobility, Transfers,Gait,Activity Tolerance Assessment Summary pt requiring min to mod A with mobility using FWW and unable to tolerate much activity with c/o nausea. pt plans to go home with spouse to assist. caregiver training will be conducted when appropriate. pt also has steps to enter the house and stair climbing training will be conducted prior to d/c. will continue to work towards goals. Goals Bed Mobility Goal Independent Transfer Goal Independent,Front Wheeled Walker Gait Goal Independent,Front Wheel Walker Gait Distance 200 Other Goals improve ambulation 200 ft using 4WW SBA up/down 3 steps B rails SBA Days to Meet Goals 5 Frequency of Treatment Frequency Of Treatment Twice a Day Treatment Plan Physical Therapy Treatment Plan Bed Mobility Training,Transfer Training,Gait Training, Therapeutic Exercise,Balance Retraining,Post Op Education, Discharge Planning,Hot or Cold Pack,Neuromuscular Re-ed, Coordination Retraining,Manual Therapy Other Recommendations and Next Treatment ambulation Focus Precautions Other Precautions LLE WBAT Recommendations To Nursing Amount of Assist Needed 1 Person Assist Discharge Recommendations PT Discharge Recommendations Home with Assistance, Outpatient PT Transportation Needs at Discharge Private Vehicle
--- NOTE | 2020-07-22 10:34 | CM.DANOTE ---
Addendum entered by Kaci Atkinson LPN 07/22/20 11:04: Checked in now with pt. He was in process of working with PT Krysten and up in room with her and the FWW. Per RN Yosarrain voiding remains an issue. Will be following. Anticipate pt's spouse will be in for caregiver training. Will check in with Krysten after the session is completed. Original Note: Discharge Planning/Care Management DCP: assessment: case received, EMR reviewed. Discussed in Team Rounds. PT will see pt for first time today. Pt is a 65 year old male who admitted yesterday for a scheduled L TKA. Surgeon: Dr. Murrieta Payer: Jesse Mac Admission status: SDC to OBS: confirmed by UR b2b account executive PA Colt Sampson was in today, noted pt with no void/straight cath x 2 and now on flomax. Pain and nausea. P: d/c likely tomorrow. Will check in with pt and follow prn for d/c issues and options. His pre-op plan is home with spouse support. Advanced directive, confirm from FAMILY Start: 07/21/20 12:15 Freq: Q24H Status: Active Protocol: Document 07/22/20 07:37 YAD (Rec: 07/22/20 07:41 YAD [id number]) Advance Directive, confirm on record Time 07:37 Person contacted patient Copy received No CM Discharge Assessment Start: 07/22/20 10:34 Freq: Status: Active Protocol: Document 07/22/20 10:34 ITV (Rec: 07/22/20 10:34 ITV [id number]) Discharge Planning Assessment Advance Directives? Yes Advance Directives on File No History Provided By Medical Record Prior Living Arrangements House Household Members spouse Pre-Anesthesia Assessment Start: 07/13/20 08:25 Freq: Status: Active Protocol: Document 07/13/20 08:25 CAB (Rec: 07/13/20 09:17 CAB [id number]) Pre-Anesthesia Assessment Preferred Name Patient Information Reviewed Via Phone Assessment Assessment Completed With Patient Diagnostic Results BMP/CMP,CBC,EKG Comment Labs/EKG @ [facility] 07/01/20, COVID screen @ [facility] 07/19/20 Primary Care Provider Pablito Tirado Medical Clearance Received Yes Seen Specialist in Last 12 Months Yes Specialist Seen Orthopedist Comment PCP clearance scanned Primary Language Czech Cleaning Maid Required No Height 185.42 cm Weight 106.594 kg Body Mass Index (BMI) 30.9 Hearing Ability Normal Visual Assist Magnifying Glass Dentition Type Teeth, Natural Present Barriers to Learning None Hx Anesthesia Reactions No Hx Family Anesthesia Reaction No Hx Malignant Hyperthermia No Hx Blood Transfusions No Hx Blood Transfusion Reaction No Anesthesia Review Requested No alcohol intake never Smoking Status Never smoker Substance Use Type does not use Pain Present Pain Reported Musculoskeletal Symptoms Abnormal Gait,Difficulty Walking,Joint Pain History of Falling (Recent or History of No ) Patient is completely paralyzed or No completely immobile Mental Status Oriented to own ability Is patient on oxygen? No Does patient have FERNÁNDEZ/SOB No Hx Sleep Apnea No CPAP/BIPAP use not prescribed Currently Taking a Beta Phoenix No Can You Climb a Flight of Stairs Without Yes SOB Hx Chest Pain No Hx SOB No Hx Syncope or Dizziness No Anti-Coagulant Therapy No Has a Solar Energy Systems Engineer No Cardiac Testing No Hx Pacemaker/ICD No Pacemaker Rep Required? No Cardiac Clearance Received Not Applicable Diet Type At Home Low Carb dysphagia No Gastrointestinal Symptoms Diarrhea Comment Diarrhea r/t Metformin Urinary Catheter Present No Hx Urinary Self Catheterization No Diabetes Yes HgbA1C 5.7 Date 07/01/20 Hx Drug Resistant Organism No Presence of External or Internal Medical No Devices Have you had any close contact with No someone diagnosed with COVID-19? Marital Status Lives With spouse Prior Living Arrangements House Number of Floors (Floors) Two Floors Support System Spouse Does the Patient Have Assistance After Yes Surgery Patient Discharge Plan Description Return Home Comment Pt advised 3 day length of stay per surgeon Feels Safe in Current Environment Yes Been Physically Hurt or Threatened By a No Person in Current Environment Do you have thoughts of harming yourself None or others? Are you currently considering suicide? No Do you have a plan to hurt yourself or No Plan others? Do You Have Any Spiritual Beliefs That No May Affect Your HC Choices? Do You Have Any Cultural Practices That No May Affect Your HC Choices? Comment [place] Who Can We Speak to About Patient's Care Family, friends Identifying Code for Release of Patient Declines to issue Information Health Care Proxy/Next of Kin Delicia () Health Care Proxy or [phone] Emergency Contact Name Delicia () Emergency Contact or [phone] Advance Directives? No Advance Directives on File No Power of Director Of Public Health Yes Power of Director Of Public Health Name Delicia () Power of Director Of Public Health or [phone] PAC Instructions Diabetes instructions,Durable medical equipment,Medications to take/avoid,Nasal antibiotic ,No ETOH/petroleum product on skin DOS,NPO,Pre-surgical wash ,Sensory aids,Sturdy shoes/ comfortable clothes,Do not bring valuables and remove jewelry
--- NOTE | 2020-07-22 12:59 | PC.NURSE ---
Patient was not able to eat breakfast due to nausea, was able to hold down some saltine crackers.
--- NOTE | 2020-07-22 14:15 | PT.IPTN ---
Current Diagnoses Unilateral primary osteoarthritis, left knee (07/22/20) Surgery Performed Operation Date: 07/21/20 08:45 Actual Procedures p Total Knee Arthroplasty(Left) - Rell Murrieta MD Physical Therapy Treatment Note M2 PT-IP Current Condition Start: 07/22/20 12:29 Freq: NEEDED Status: Active Protocol: Document 07/22/20 10:30 AB (Rec: 07/22/20 12:44 AB [id number]) Physical Therapy Current Condition Current Condition Evaluation Date 07/22/20 Treatment Diagnosis s/p L TKA; difficulty in walking Weight Bearing Status Weight Bearing Status Weight Bear as Tolerated Allowed Weight Bearing Amount (enter % LLE WBAT or #) (%) M3 PT-IP Subjective Start: 07/22/20 12:29 Freq: NEEDED Status: Active Protocol: Document 07/22/20 14:15 AB (Rec: 07/22/20 16:01 AB [id number]) Subjective Physical Therapy Visit Type Type Treatment Note Visit Start Time 14:15 Visit Stop Time 15:00 Total Visit Minutes 45 Number of AG SERVICE MANAGER Visits 0 Physical Therapy Visit Comments Patient Comments pt is agreeable to do PT; spouse in room with pt Therapy Pain Assessment Pain When Pain Assessed At Rest Pain Present Pain Present Pain Reported Location left knee Intensity 6 Scale Used Numeric (0 - 10) Pain Behaviors Facial Grimacing,Guarding, Holding Area Pain Management Techniques Apply Cold,Modification of Treatment,Re-positioning, Timing of Activity with Medications M4 PT-IP Mobility and Gait Start: 07/22/20 12:29 Freq: NEEDED Status: Active Protocol: Document 07/22/20 14:15 AB (Rec: 07/22/20 16:01 AB [id number]) PT-Bed Mobility Assessment Supine to Sit Supine to Sit Moderate Assistance,1 Person Assistance Sit to Supine Sit to Supine Minimal Assistance PT-Transfer Assessment Sit to and From Stand Sit to and from Stand Minimal Assistance,1 Person Assistance,Use of Upper Extremities Equipment Transfer Assistive Device Gait Belt,Front Wheeled Walker Orthotic/Prosthetic Devices or Brace: No Comments Mobility Comments pt supine in bed. continues to c/o nausea and increas pain but agreed to do PT. completed heel slides prior to mobility. pt presents with increase guarding. PROM ~ 30 deg with increase resistance to flexion. conducted myofascial release and PROM increased to ~ 50 deg. pt completed supine to sit mod A for LLE support. pt stated that he needs PT to support LLE with dangling to EOB due to pain. positioned LLE and pt was able to tolerate sitting with slightly more flexion on L knee. pt completed sit to stand CGA to min A. ambulated in room using FWW 12 ft CGA to min A and cues for L quads activation. pt instructed to sit on EOB. Caregiver training initiated. educated spouse on how to use safety belt and how to assist pt. spouse was able to put safety belt on but still requires cues to complete. assisted pt with ambulation in room using FWW 20 ft CGA to min A. spouse requiring to sit down in between tasks and stated that she cannot stand up too long due to her back problem. pt requested to go back to bed . completed sit to supine min A with LLE elevation and spouse assisted. positioned pt in bed. call light and table placed within reach. caregiver training set up for 930 tomorrow morning. informed pt regarding stair climbing training. pt stated this morning that he has 3 steps with bilateral rails to enter the house. This afternoon, pt stated that his steps are big enough for the FWW to fit in. will conduct stair climbing training when appropriate. Gait Assessment Gait Gait Assistance Required: Contact Guard Assist,Minimum Assistance,1 Person Assist Distance (Feet) 20 Able to Maintain Weight Bearing Status Yes During Gait Assistive Devices Assistive Device Gait Belt,Front Wheeled Walker Orthotic/Prosthetic Devices or Brace: No Gait Deviations General Gait Pattern Antalgic,Decreased Stride Length,Decreased Feet Clearance,Step-to Gait Factors Limiting Gait Function Factors Limiting Gait Function Decreased Activity Tolerance, Decreased Strength,Limited Range of Motion,Pain,Poor Balance,Poor Safety Awareness M5 PT-IP Objective Assessments Start: 07/22/20 12:29 Freq: NEEDED Status: Active Protocol: Document 07/22/20 10:30 AB (Rec: 07/22/20 12:44 AB [id number]) Orientation Orientation/Cognition Level of Alertness Alert Orientation Name,Place,Situation Language Function Ability No Deficits Noted Safety Awareness Decreased Safety Awareness Gross Range of Motion Lower Extremity ROM Assessment Left Impaired Impairments L knee flexion: ~ 30 degrees with increase guarding with movement L knee extension: 10 deg less to 0 Strength Lower Extremity Strength Assessment Left Impaired Knee 3+/5 Sensation Assessment Sensation Gross Sensation WNL Muscle Tone Muscle Tone WNL Yes M6 PT-IP Treatment Start: 07/22/20 12:29 Freq: NEEDED Status: Active Protocol: Document 07/22/20 14:15 AB (Rec: 07/22/20 16:01 AB [id number]) Physical Therapy Treatment Exercises Exercises Heel Slides Education Education Provided Safety M7 PT-IP Assessment and Plan Start: 07/22/20 12:29 Freq: NEEDED Status: Active Protocol: Document 07/22/20 14:15 AB (Rec: 07/22/20 16:01 AB [id number]) PT Summary Assessment and Plan Potential Rehabilitation Potential Good Summary Impairments Pain,ROM,Strength,Balance, Coordination,Sensation,Tone, Cognition,Bed Mobility, Transfers,Gait,Activity Tolerance Progress Towards Goals Slow Progress due to Pain Assessment Summary pt progressing slowly and continues to c/o nausea and increase pain affecting mobility. caregiver training initiated but needs further training. will also conduct stair climbing training when appropriate. caregiver training set up for tomorrow @ 930 am. Goals Bed Mobility Goal Independent Transfer Goal Independent,Front Wheeled Walker Gait Goal Independent,Front Wheel Walker Gait Distance 200 Other Goals improve ambulation 200 ft using 4WW SBA up/down 3 platform steps using FWW SBA Days to Meet Goals 5 Frequency of Treatment Frequency Of Treatment Twice a Day Treatment Plan Physical Therapy Treatment Plan Bed Mobility Training,Transfer Training,Gait Training, Therapeutic Exercise,Balance Retraining,Post Op Education, Discharge Planning,Hot or Cold Pack,Neuromuscular Re-ed, Coordination Retraining,Manual Therapy Other Recommendations and Next Treatment ambulation Focus Precautions Other Precautions LLE WBAT Recommendations To Nursing Amount of Assist Needed 1 Person Assist Discharge Recommendations PT Discharge Recommendations Home with Assistance, Outpatient PT Transportation Needs at Discharge Private Vehicle
[2020-07-22] MEDS: polyethylene glycoL 3350 17 GM POWD.PACK PO (14:57)
[2020-07-22] MEDS: ONDANSETRON 4 MG ODT PO (15:03)
[2020-07-22] MEDS: ATORVASTATIN 20 MG TABLET 10 MG PO (20:31)
[2020-07-22] MEDS: METFORMIN HCL 500 MG TABLET PO (20:31)
--- NOTE | 2020-07-22 21:35 | PC.NURSE ---
is still unable to void on his own, called Rn due to inability to urinate continues. Straight cathed for 1000ml at 2115.
[2020-07-23 03:00] VITALS: BP 155/83; PULSE 84; RESP 18; TEMP 37.1; O2SAT 95
[2020-07-23] MEDS: OXYCODONE IR 10 MG TABLET PO ×6 (03:47→21:11)
--- NOTE | 2020-07-23 04:40 | PC.NURSE ---
Bladder scanned 763 cc. ortiz placed noted 550 cc of dark yellow urine & ortiz still draining.
--- NOTE | 2020-07-23 07:54 | PM.PNPO.1 ---
Subjective Subjective Date Patient Seen: 07/23/20 Time Patient Seen: 07:54 Interval history: Patient states he is doing well overall and is in mild discomfort at rest. At this time he rates his pain 4/10 intensity. Patient denies fever, chills, nausea, chest pain, or shortness of breath. Patient reports that he has had urinary retention and he states that he has not been able to void on his own since surgery. He explains that he has had issues with urinary retention in the past following surgery. Patient was administered Flomax yesterday when he explains that it did not improve his urinary retention. Exam Vital Signs (past 8 hours): - 07/23/20 03:00 Temperature 98.7 F Pulse Rate 84 Respiratory Rate 18 Blood Pressure 155/83 H Pulse Oximetry 95 Oxygen Delivery Method Room Air Oxygen Flow Rate 0 Narrative Exam Narrative: 65-year-old male postop day 2 status post left total knee arthroplasty patient is resting comfortably in bed, is in no acute distress, is alert and oriented x3. Skin is warm and dry, and the skin surrounding the incision site is free of erythema, warmth, induration, or discharge. Aquacel dressing over the incision site is clean, dry, and intact. Indwelling Lorenzo catheter. Good sensation appreciated throughout the bilateral lower extremities light touch. Hip flexion performed bilaterally without difficulty or discomfort. Ankle dorsiflexion, plantar flexion, eversion, inversion performed bilaterally without difficulty or discomfort. Tenderness to palpation appreciated along the left medial thigh. Calves are soft nontender, negative Homans sign. DP pulses palpated bilaterally. No other signs of DVT appreciated. Const General: cooperative, healthy appearing and comfortable Resp Effort & Inspection: normal respiratory effort and able to speak in complete sentences Skin General: no rashes or lesions noted Objective Labs Result Diagrams: 07/22/20 04:56 [facility] Medical History Arthritis of knee (~1989) Chicken pox Colon polyps (~2002) Diabetes mellitus (~2011) Diverticulosis HLD (hyperlipidemia) Hypertension (~2010) Measles Osteoarthritis of left knee Seasonal allergies Shingles Thyroid nodule (~2011) Surgical History Anesthesia History of colonoscopy with polypectomy (02/28/18) History of thyroidectomy (~2009) Status post arthroscopy (~2008) Status post colonoscopy Family History Father Heart disease Hypertension Hyperlipidemia Mother Cancer Diabetes mellitus Brother Cancer Hypertension Brother Cancer Hypertension Sister Cancer Sister Cancer Social History household members: spouse Smoking Status: Never smoker alcohol intake: never Assessment & Plan Post-op Postoperative Procedures: Procedures Operation Date: 07/21/20 08:45 Actual Procedures Side Surgeon p Total Knee Arthroplasty Left Rell Murrieta MD Postoperative day: 2 Postoperative status: urinary retention Postoperative plan: ambulate Postoperative plan narrative: Patient is to continue working on ambulation with the assistance of a front wheeled walker with physical therapy. Current pain management regimen is to be continued. Aspirin 81 mg twice daily is to be continued for DVT prophylaxis. Plan to remove Lorenzo catheter today following administration of next dose of Flomax. Discharge pending the patient being able to void independently. Time Spent With Patient Time with patient: less than 15 minutes Quality VTE Deep Vein Thrombosis/Pulmonary Embolism Present on Admission: No
[2020-07-23 08:00] VITALS: BP 162/88; PULSE 94; RESP 15; TEMP 37.2; O2SAT 94
[2020-07-23] MEDS: ACETAMINOPHEN 325 MG TABLET 650 MG PO ×3 (08:07→21:13)
[2020-07-23] MEDS: DOCUSATE 100 MG CAPSULE PO ×2 (08:07→21:12)
[2020-07-23] MEDS: ASPIRIN EC 81 MG TABLET PO ×2 (08:08→21:12)
[2020-07-23] MEDS: METFORMIN HCL 500 MG TABLET 1000 MG PO (08:08)
[2020-07-23] MEDS: GLIMEPIRIDE 2 MG TABLET PO (08:08)
[2020-07-23] MEDS: TAMSULOSIN 0.4 MG CAPSULE PO (08:08)
[2020-07-23 08:10] VITALS: BP 162/88; PULSE 94
[2020-07-23] MEDS: lisinopriL 20 MG TABLET 40 MG PO ×2 (08:10→21:12)
[2020-07-23] MEDS: AMLODIPINE 5 MG TABLET 10 MG PO ×2 (08:11→21:12)
--- NOTE | 2020-07-23 09:25 | PT.IPTN ---
Current Diagnoses Unilateral primary osteoarthritis, left knee (07/22/20) Retention of urine, unspecified (07/22/20) Other specified postprocedural states (07/22/20) Surgery Performed Operation Date: 07/21/20 08:45 Actual Procedures p Total Knee Arthroplasty(Left) - Rell Murrieta MD Physical Therapy Treatment Note M2 PT-IP Current Condition Start: 07/22/20 12:29 Freq: NEEDED Status: Active Protocol: Document 07/22/20 10:30 AB (Rec: 07/22/20 12:44 AB [email or web address]) Physical Therapy Current Condition Current Condition Evaluation Date 07/22/20 Treatment Diagnosis s/p L TKA; difficulty in walking Weight Bearing Status Weight Bearing Status Weight Bear as Tolerated Allowed Weight Bearing Amount (enter % LLE WBAT or #) (%) M3 PT-IP Subjective Start: 07/22/20 12:29 Freq: NEEDED Status: Active Protocol: Document 07/23/20 09:25 AB (Rec: 07/23/20 11:57 AB [email or web address]) Subjective Physical Therapy Visit Type Type Treatment Note Visit Start Time 09:25 Visit Stop Time 10:25 Total Visit Minutes 60 Number of [employer] Visits 0 Physical Therapy Visit Comments Patient Comments pt is agreeable to do PT Therapy Pain Assessment Pain When Pain Assessed At Rest Pain Present Pain Present Pain Reported Location left knee Intensity 4 Scale Used increases to 8/10 with activity Pain Management Techniques Distraction,Modification of Treatment,Re-positioning, Timing of Activity with Medications M4 PT-IP Mobility and Gait Start: 07/22/20 12:29 Freq: NEEDED Status: Active Protocol: Document 07/23/20 09:25 AB (Rec: 07/23/20 11:57 AB [email or web address]) PT-Bed Mobility Assessment Supine to Sit Supine to Sit Moderate Assistance,1 Person Assistance Sit to Supine Sit to Supine Moderate Assistance,Maximum Assistance,1 Person Assistance PT-Transfer Assessment Sit to and From Stand Sit to and from Stand Contact Guard Assistance, Minimal Assistance,1 Person Assistance,Use of Upper Extremities Equipment Transfer Assistive Device Gait Belt,Front Wheeled Walker Orthotic/Prosthetic Devices or Brace: No Transfers Transfer Destination Chair Transfer Technique ambulated using FWW Transfer Ability Level of Assist Contact Guard Assistance, Minimal Assistance,1 Person Assistance,Use of Upper Extremities Comments Mobility Comments caregiver training set up with spouse. pt completed heel slides prior to mobility while waiting for spouse to arrive. spouse came in and have pt' s standard walker. informed pt that he needs a FWW. pt stated that he has the wheels at home and can change it. pt completed supine to sit with spouse assisting pt with LLE. c/o increase pain to 8/ 10. pt seated on EOB for a few minutes. spouse don safety belt on pt and pt cued spouse on how to put safety belt on. pt completed sit to stand with spouse assiting and ambulated to the chair. reminded spouse to cue pt for quads activation. pt sat on chair and rested. agreed to do stair climbing training. pt completed sit to stand from chair x 3 reps and spouse assisted pt. pt ambulated with spouse using FWW CGA to min A. educated on how to do stair climbing and completed up/down platform set using FWW min to mod A and cues. spouse unable to cue pt and pt is the one telling spouse on how to assist him. pt c/o nausea afterwards and needs to sit down. pt sat on 4WW set up against the wall. transferred pt to w/c using FWW. pt requested to go back to bed and completed transfer w/c to bed using FWW CGA to min A. spouse assisted pt with sit to supine. positioned pt in bed . call light and table placed within reach. informed spouse to remember on how to assist and cue pt as pt has a lot of pain and is taking medication and may not remember technniques and safety. will continue caregiver training later this afternoon at ~ 1-130 pm. Gait Assessment Gait Gait Assistance Required: Contact Guard Assist,Minimum Assistance Distance (Feet) 30 Able to Maintain Weight Bearing Status Yes During Gait Assistive Devices Assistive Device Gait Belt,Front Wheeled Walker Orthotic/Prosthetic Devices or Brace: No Gait Deviations General Gait Pattern Antalgic,Decreased Stride Length,Decreased Feet Clearance Factors Limiting Gait Function Factors Limiting Gait Function Decreased Activity Tolerance, Decreased Strength,Limited Range of Motion,Pain,Poor Balance,Poor Safety Awareness Stair Climbing Assessment Evaluation Level of Assist On Stairs Minimal Assistance,Moderate Assistance,1 Person Assistance Devices Stair Climbing Assistive Devices Front Wheel Walker Technique/Endurance Stair Climbing Direction Ascend and Descend Stair Climbing Technique Step to Step Number of Steps Climbed 1 Stair Climbing Set # Repetitions (reps) 1 M5 PT-IP Objective Assessments Start: 07/22/20 12:29 Freq: NEEDED Status: Active Protocol: Document 07/22/20 10:30 AB (Rec: 07/22/20 12:44 AB [id number]) Orientation Orientation/Cognition Level of Alertness Alert Orientation Name,Place,Situation Language Function Ability No Deficits Noted Safety Awareness Decreased Safety Awareness Gross Range of Motion Lower Extremity ROM Assessment Left Impaired Impairments L knee flexion: ~ 30 degrees with increase guarding with movement L knee extension: 10 deg less to 0 Strength Lower Extremity Strength Assessment Left Impaired Knee 3+/5 Sensation Assessment Sensation Gross Sensation WNL Muscle Tone Muscle Tone WNL Yes M6 PT-IP Treatment Start: 07/22/20 12:29 Freq: NEEDED Status: Active Protocol: Document 07/23/20 09:25 AB (Rec: 07/23/20 11:57 AB [id number]) Physical Therapy Treatment Exercises Exercises Heel Slides Education Education Provided Safety M7 PT-IP Assessment and Plan Start: 07/22/20 12:29 Freq: NEEDED Status: Active Protocol: Document 07/23/20 09:25 AB (Rec: 07/23/20 11:57 AB [id number]) PT Summary Assessment and Plan Potential Rehabilitation Potential Good Summary Impairments Pain,ROM,Strength,Balance, Coordination,Sensation,Tone, Cognition,Bed Mobility, Transfers,Gait,Activity Tolerance Progress Towards Goals Slow Progress due to Pain,Slow Progress due to Activity Tolerance Assessment Summary pt is progressing slowly but continues to be limited with activity due to c/o increase pain and nausea. caregiver training conducted but further training is needed. Will continue to work towards. Goals Bed Mobility Goal Independent Transfer Goal Independent,Front Wheeled Walker Gait Goal Independent,Front Wheel Walker Gait Distance 200 Other Goals improve ambulation 200 ft using 4WW SBA up/down 3 platform steps using FWW SBA Days to Meet Goals 5 Frequency of Treatment Frequency Of Treatment Twice a Day Treatment Plan Physical Therapy Treatment Plan Bed Mobility Training,Transfer Training,Gait Training, Therapeutic Exercise,Balance Retraining,Post Op Education, Discharge Planning,Hot or Cold Pack,Neuromuscular Re-ed, Coordination Retraining,Manual Therapy Other Recommendations and Next Treatment ambulation, stair climbing Focus Precautions Other Precautions LLE WBAT Recommendations To Nursing Amount of Assist Needed 1 Person Assist Discharge Recommendations PT Discharge Recommendations Home with Assistance,Home Health,Outpatient PT Transportation Needs at Discharge Private Vehicle
--- NOTE | 2020-07-23 09:33 | PC.NURSE ---
Patient ortiz catheter D/C per order. Patient educated on voiding, no s/s of distress at time of removal.
[2020-07-23] MEDS: ONDANSETRON 4 MG ODT PO (10:15)
[2020-07-23 12:02] VITALS: BP 142/79; PULSE 90; RESP 15; TEMP 37; O2SAT 95
--- NOTE | 2020-07-23 13:30 | PT.IPTN ---
Current Diagnoses Unilateral primary osteoarthritis, left knee (07/23/20) Retention of urine, unspecified (07/23/20) Other specified postprocedural states (07/23/20) Surgery Performed Operation Date: 07/21/20 08:45 Actual Procedures p Total Knee Arthroplasty(Left) - Rell Murrieta MD Physical Therapy Treatment Note M2 PT-IP Current Condition Start: 07/22/20 12:29 Freq: NEEDED Status: Active Protocol: Document 07/22/20 10:30 AB (Rec: 07/22/20 12:44 AB [email or web address]) Physical Therapy Current Condition Current Condition Evaluation Date 07/22/20 Treatment Diagnosis s/p L TKA; difficulty in walking Weight Bearing Status Weight Bearing Status Weight Bear as Tolerated Allowed Weight Bearing Amount (enter % LLE WBAT or #) (%) M3 PT-IP Subjective Start: 07/22/20 12:29 Freq: NEEDED Status: Active Protocol: Document 07/23/20 13:30 AB (Rec: 07/23/20 15:02 AB [id number]) Subjective Physical Therapy Visit Type Type Treatment Note Visit Start Time 13:30 Visit Stop Time 14:04 Total Visit Minutes 34 Number of [employer] Visits 0 Physical Therapy Visit Comments Patient Comments pt is agreeable to do PT Therapy Pain Assessment Pain When Pain Assessed At Rest Pain Present Pain Present Pain Reported Location left knee Intensity 4 Scale Used Numeric (0 - 10) Pain Behaviors Facial Grimacing,Guarding, Holding Area,Wincing Pain Management Techniques Apply Cold,Distraction, Elevation,Modification of Treatment,Re-positioning, Timing of Activity with Medications M4 PT-IP Mobility and Gait Start: 07/22/20 12:29 Freq: NEEDED Status: Active Protocol: Document 07/23/20 13:30 AB (Rec: 07/23/20 15:02 AB [id number]) PT-Bed Mobility Assessment Supine to Sit Supine to Sit Minimal Assistance,1 Person Assistance Sit to Supine Sit to Supine Minimal Assistance,1 Person Assistance PT-Transfer Assessment Sit to and From Stand Sit to and from Stand Contact Guard Assistance,1 Person Assistance,Use of Upper Extremities Equipment Transfer Assistive Device Gait Belt,Front Wheeled Walker Orthotic/Prosthetic Devices or Brace: No Transfers Transfer Destination Chair Transfer Technique ambulated using FWW Transfer Ability Level of Assist Contact Guard Assistance,1 Person Assistance,Use of Upper Extremities Comments Mobility Comments spouse in room for caregiver training. pt completed heel slides in bed before mobility. educated spouse on how to assist pt with heels slides and was able to counter demonstrate. pt completed supine to sit with spouse assisting LLE. Spouse was able to put safety belt on pt with pt cueing pt on how to put belt on. spouse assisted pt with sit to stand and walking in room using FWW. pt rested and agreed to ambulate in the hallway and do stair climbing. pt completed sit to stand from the chair with spouse assisting and pt ambulated using FWW towards platform step ~ 30 ft. pt completed up/down platform step x 3 sets using FWW and spouse assisted CGA to min A. Pt initially cued spouse on how to assist pt but able to carryover assistance after first set without cues from PT . pt ambulated back to his room and requested to go back to bed and stated that he is beginning to feel nauseated again. spouse assisted pt with sit to supine. positioned pt in bed. call light and table placed within reach. Gait Assessment Gait Gait Assistance Required: Contact Guard Assist,1 Person Assist Distance (Feet) 30 Able to Maintain Weight Bearing Status Yes During Gait Assistive Devices Assistive Device Gait Belt,Front Wheeled Walker Orthotic/Prosthetic Devices or Brace: No Gait Deviations General Gait Pattern Antalgic,Decreased Stride Length,Decreased Feet Clearance Factors Limiting Gait Function Factors Limiting Gait Function Decreased Activity Tolerance, Decreased Strength,Limited Range of Motion,Pain,Poor Balance Comments Gait Comments pls refer to mobility section for details Stair Climbing Assessment Evaluation Level of Assist On Stairs Contact Guard Assistance, Minimal Assistance Devices Stair Climbing Assistive Devices Front Wheel Walker Technique/Endurance Stair Climbing Direction Ascend and Descend Stair Climbing Technique Step to Step Number of Steps Climbed 1 Stair Climbing Set # Repetitions (reps) 3 M5 PT-IP Objective Assessments Start: 07/22/20 12:29 Freq: NEEDED Status: Active Protocol: Document 07/22/20 10:30 AB (Rec: 07/22/20 12:44 AB [id number]) Orientation Orientation/Cognition Level of Alertness Alert Orientation Name,Place,Situation Language Function Ability No Deficits Noted Safety Awareness Decreased Safety Awareness Gross Range of Motion Lower Extremity ROM Assessment Left Impaired Impairments L knee flexion: ~ 30 degrees with increase guarding with movement L knee extension: 10 deg less to 0 Strength Lower Extremity Strength Assessment Left Impaired Knee 3+/5 Sensation Assessment Sensation Gross Sensation WNL Muscle Tone Muscle Tone WNL Yes M6 PT-IP Treatment Start: 07/22/20 12:29 Freq: NEEDED Status: Active Protocol: Document 07/23/20 13:30 AB (Rec: 07/23/20 15:02 AB [id number]) Physical Therapy Treatment Exercises Exercises Heel Slides Education Education Provided Safety M7 PT-IP Assessment and Plan Start: 07/22/20 12:29 Freq: NEEDED Status: Active Protocol: Document 07/23/20 13:30 AB (Rec: 07/23/20 15:02 AB [id number]) PT Summary Assessment and Plan Potential Rehabilitation Potential Good Summary Impairments Pain,ROM,Strength,Balance, Coordination,Sensation,Tone, Cognition,Bed Mobility, Transfers,Gait,Activity Tolerance Progress Towards Goals Slow Progress due to Activity Tolerance Assessment Summary caregiver training conducted and spouse was able to assist pt safely. pt continues to have decrease activity tolerance with c/o nausea towards end of PT session. pt plans to go home and spouse to assist. pt may require HHPT at this time instead of outpt PT due to decrease activity tolerance. Goals Bed Mobility Goal Independent Transfer Goal Independent,Front Wheeled Walker Gait Goal Independent,Front Wheel Walker Gait Distance 200 Other Goals improve ambulation 200 ft using 4WW SBA up/down 3 platform steps using FWW SBA Days to Meet Goals 5 Frequency of Treatment Frequency Of Treatment Twice a Day Treatment Plan Physical Therapy Treatment Plan Bed Mobility Training,Transfer Training,Gait Training, Therapeutic Exercise,Balance Retraining,Post Op Education, Discharge Planning,Hot or Cold Pack,Neuromuscular Re-ed, Coordination Retraining,Manual Therapy Other Recommendations and Next Treatment ambulation, stair climbing Focus Precautions Other Precautions LLE WBAT Recommendations To Nursing Amount of Assist Needed 1 Person Assist Discharge Recommendations PT Discharge Recommendations Home with Assistance,Home Health,Outpatient PT Transportation Needs at Discharge Private Vehicle
--- NOTE | 2020-07-23 14:57 | CM.DPC ---
DCP: continued: spoke with ortho GIDEON Martel this morning after his discussion with Dr. Murrieta. He states they plan to keep pt until tomorrow with goal to make sure pt is voiding adequately on his own. He was very clear that it is not an option to d/c this particular pt home with a ortiz catheter in place. He discussed same with UR RN.
--- NOTE | 2020-07-23 15:15 | PC.NURSE ---
Patient attempted to void per urinal post discontinuation of ortiz catheter. Patient able to void a few drops of blood-tinged urine, unable to measure. Denies any burning or pain on void, report given to oncoming RN.
[2020-07-23 16:00] VITALS: BP 136/82; PULSE 91; RESP 16; TEMP 37.1; O2SAT 96
[2020-07-23 19:00] VITALS: BP 145/79; PULSE 92; RESP 16; TEMP 37.1; O2SAT 93
[2020-07-23] MEDS: METFORMIN HCL 500 MG TABLET PO (21:12)
[2020-07-23] MEDS: ATORVASTATIN 20 MG TABLET 10 MG PO (21:12)
[2020-07-24 00:50] VITALS: BP 153/79; PULSE 91; RESP 18; TEMP 36.6; O2SAT 93
[2020-07-24] MEDS: OXYCODONE IR 10 MG TABLET PO ×3 (00:50→07:52)
[2020-07-24 04:23] VITALS: BP 141/74; PULSE 88; RESP 18; TEMP 36.8; O2SAT 97
[2020-07-24 07:57] VITALS: BP 133/82; PULSE 92; RESP 15; O2SAT 97
[2020-07-24 08:00] VITALS: TEMP 37.5
[2020-07-24] MEDS: AMLODIPINE 5 MG TABLET 10 MG PO (08:00)
[2020-07-24] MEDS: METFORMIN HCL 500 MG TABLET 1000 MG PO (08:00)
[2020-07-24] MEDS: ASPIRIN EC 81 MG TABLET PO (08:00)
[2020-07-24] MEDS: ACETAMINOPHEN 325 MG TABLET 650 MG PO (08:00)
[2020-07-24] MEDS: DOCUSATE 100 MG CAPSULE PO (08:00)
[2020-07-24] MEDS: lisinopriL 20 MG TABLET 40 MG PO (08:05)
[2020-07-24] MEDS: GLIMEPIRIDE 2 MG TABLET PO (08:05)
[2020-07-24] MEDS: TAMSULOSIN 0.4 MG CAPSULE PO (08:05)
[2020-07-24] MEDS: SODIUM CHLORIDE 0.9% FLUSH 10 ML IV (08:05)
--- NOTE | 2020-07-24 08:55 | P.PN_ITS ---
Subjective Subjective Date Patient Seen: 07/24/20 Time Patient Seen: 08:55 Interval history: Patient is resting comfortably in bed and is in mild discomfort at rest. At this time he rates his pain a 4/10 in intensity. The patient currently denies fever, chills, nausea, chest pain, shortness of breath, or urinary retention. Patient notes that he was able to void 4 times yesterday following administration Flomax and the removal of his Lorenzo catheter. He reports good sensation throughout the bilateral lower extremities. He notes that he is looking forward to being discharged home today. Exam Vital Signs (past 8 hours): - 07/24/20 04:23 07/24/20 07:57 07/24/20 08:00 Temperature 98.2 F 99.5 F Pulse Rate 88 92 H Respiratory Rate 18 15 Blood Pressure 141/74 H 133/82 Pulse Oximetry 97 97 Oxygen Delivery Method Room Air Oxygen Flow Rate 0 Narrative Exam Narrative: Pleasant 65-year-old male postop day 3 status post left total knee arthroplasty. Patient is resting comfortably in bed, is in no acute distress, is alert and oriented x3. Skin is warm and dry, and the skin surrounding the incision site is free of erythema, warmth, induration, or discharge. Aquacel dressing over the incision site is clean, dry, and intact. Good sensation appreciated throughout the bilateral lower extremities to light touch. Hip flexion performed bilaterally without difficulty or discomfort. Ankle dorsiflexion, plantar flexion, eversion, inversion performed bilaterally without difficulty or discomfort. Calves are soft nontender, negative Homans sign. DP pulses palpated bilaterally. No other signs of DVT appreciated. Const General: cooperative, healthy appearing and comfortable Resp Effort & Inspection: normal respiratory effort and able to speak in complete s entences Skin General: no rashes or lesions noted Objective Labs Result Diagrams: 07/22/20 04:56 [facility] Medical History Arthritis of knee (~1989) Chicken pox Colon polyps (~2002) Diabetes mellitus (~2011) Diverticulosis HLD (hyperlipidemia) Hypertension (~2010) Measles Osteoarthritis of left knee Seasonal allergies Shingles Thyroid nodule (~2011) Surgical History Anesthesia History of colonoscopy with polypectomy (02/28/18) History of thyroidectomy (~2009) Status post arthroscopy (~2008) Status post colonoscopy Family History Father Heart disease Hypertension Hyperlipidemia Mother Cancer Diabetes mellitus Brother Cancer Hypertension Brother Cancer Hypertension Sister Cancer Sister Cancer Social History household members: spouse Smoking Status: Never smoker alcohol intake: never Assessment & Plan Post-op Postoperative Procedures: Procedures Operation Date: 07/21/20 08:45 Actual Procedures Side Surgeon p Total Knee Arthroplasty Left Rell Murrieta MD Postoperative day: 3 Postoperative status: doing well Postoperative plan: ambulate Postoperative plan narrative: Patient is to continue working on ambulation with the assistance of a front wheel walker with physical therapy. Current pain management regimen is to be continued. Aspirin 81 mg twice daily to be continued for DVT prophylaxis. Plan for discharge likely home today. Time Spent With Patient Time with patient: less than 15 minutes Quality VTE Deep Vein Thrombosis/Pulmonary Embolism Present on Admission: No
--- NOTE | 2020-07-24 09:03 | P.DS_ITS ---
History of Present Illness History of Present Illness Date Patient Seen: 07/24/20 Time Patient Seen: 09:04 Chief complaint: OPB Narrative: Refer to previous HPI. Discharge Providers Provider Date of admission: 07/23/20 07:50 Discharge Date: 07/24/20 Primary care physician: Pablito Tirado MD Consults: 07/21/20 08:33 Consult to Anesthesiology Routine Comment: Consulting Provider: Anesthesiologist Reason for consultation: Regional block for post operative pain control 07/21/20 11:50 Consult to Discharge Planning Routine Comment: Consult to Physical Therapy Evaluate & Treat Comment: Physician Instructions: postop TKA protocol Consult to Respiratory Therapy Evaluate & Treat Comment: Physician Instructions: Evaluate and treat Discharge provider: Delonte John PA-C Summary Hospital Course Discharge Diagnosis: Left knee osteoarthritis Status post left total knee arthroplasty Hospital Course: Patient was admitted to the hospital following the above-listed procedure for the above-listed diagnosis. Following the procedure the patient has been convalescing appropriately in his pain has been managed with his current pain management regimen. Throughout his course of his stay in the hospital the patient has denied fever, chills, nausea, chest pain, or shortness of breath. Patient experienced urinary retention following surgery that has since resolved with the administration of Flomax. Aquacel dressing over the incision site has remained intact following surgery. Patient is successfully worked on ambulation with the assistance of a front wheeled walker and stair Piatt with physical therapy. Status at Discharge Cognitive/behavioral status at discharge: oriented Functional status at discharge: uses cane/walker Overall status at discharge: patient is progressing back to baseline Exam Vital Signs (past 8 hours): - 07/24/20 04:23 07/24/20 07:57 07/24/20 08:00 Temperature 98.2 F 99.5 F Pulse Rate 88 92 H Respiratory Rate 18 15 Blood Pressure 141/74 H 133/82 Pulse Oximetry 97 97 Oxygen Delivery Method Room Air Oxygen Flow Rate 0 Objective Labs Result Diagrams: 07/22/20 04:56 [facility] Medical History Arthritis of knee (~1989) Chicken pox Colon polyps (~2002) Diabetes mellitus (~2011) Diverticulosis HLD (hyperlipidemia) Hypertension (~2010) Measles Osteoarthritis of left knee Seasonal allergies Shingles Thyroid nodule (~2011) Surgical History Anesthesia History of colonoscopy with polypectomy (02/28/18) History of thyroidectomy (~2009) Status post arthroscopy (~2008) Status post colonoscopy Family History Father Heart disease Hypertension Hyperlipidemia Mother Cancer Diabetes mellitus Brother Cancer Hypertension Brother Cancer Hypertension Sister Cancer Sister Cancer Social History household members: spouse Smoking Status: Never smoker alcohol intake: never Discharge Assessment & Plan Assessment and Plan Assessment: Patient is doing well. Plan of Treatment: Patient is to continue physical therapy in the outpatient setting following discharge from the hospital. First postoperative visit in clinic is scheduled for 2 weeks following discharge from the hospital. Current pain management regimen is to be continued as it is adequately controlled the patient's pain level. Aspirin 81 mg twice daily is to be continued for 6 weeks for DVT prophylaxis. Patient is to remain weight-bearing as tolerated with the assistance of a front wheeled walker. Aquacel dressing over the incision site is to remain clean, dry, and intact for 2 weeks. Contact the clinic if the dressing becomes damaged or soiled. Patient is to contact clinic with any concerns or questions. Any signs of increased redness, swelling, warmth, pain, or discharge from around the incision site should be reported to the clinic. Discharge Plan Discharge Plan Patient Disposition: Home Provider Discharge Comment: Patient cleared for discharge pending PT clearance. Discharge orders & Medications Prescriptions: New acetaminophen 325 mg Tablet 650 mg PO TID Qty: 90 RF: 0 aspirin 81 mg Tablet,Delayed Release (Dr/Ec) 81 mg PO BID Qty: 90 RF: 0 ondansetron 4 mg Tablet,Disintegrating 4 mg PO Q4HR PRN (Reason: Nausea) Qty: 30 RF: 0 oxycodone 10 mg Tablet 10 mg PO Q3HR PRN (Reason: Pain, Severe (7-10)) Qty: 42 RF: 0 tamsulosin [Flomax] 0.4 mg Capsule 0.4 mg PO DAILY Qty: 14 RF: 0 tamsulosin [Flomax] 0.4 mg capsule 0.4 mg PO DAILY Qty: 30 RF: 0 Continued aspirin 81 MG tablet,delayed release (DR/EC) 81 mg PO QDAY Qty: 0 RF: 0 glimepiride 2 mg tablet 2 mg PO QAM Qty: 90 RF: 0 amlodipine 5 mg tablet 10 mg PO BID RF: 0 naproxen sodium [Aleve] 220 mg Capsule 440 mg PO QPM PRN (Reason: Pain) RF: 0 metformin 500 mg tablet 500 mg PO BEDTIME RF: 0 metformin 500 mg tablet 1,000 mg PO DAILY RF: 0 atorvastatin [Lipitor] 10 mg tablet 10 mg PO BEDTIME RF: 0 lisinopril 40 mg tablet 40 mg PO BID RF: 0 Follow up/Referrals: Pablito Tirado MD [Primary Care Provider] - Diet/Activity/Treatments Diet: Diet as Tolerated Activity: Weight-bearing as tolerated with the assistance of a front wheeled walker. Skin/Wound/Dressing Care Report to your healthcare provider any signs of infection, such as:: chills, fever, night sweats, increased pain, unusual drainage and unusual redness Dressing: Aquacel dressing over the incision site is to remain intact for 2 weeks. Contact clinic if the dressing becomes damaged or soiled. Visit Report/Discharge Packet Instructions: DI for Heart Failure, DI for Knee Replacement, DI for Prescription Opioid Use Stand Alone Forms: Surgery Discharge Discharge Data Primary Care Provider: Pablito Tirado Quality VTE Deep Vein Thrombosis/Pulmonary Embolism Present on Admission: No
--- NOTE | 2020-07-24 09:07 | PM.DS.1 ---
History of Present Illness History of Present Illness Chief complaint: OPB Narrative: Refer to previous HPI. Discharge Providers Provider Date of admission: 07/23/20 07:50 Discharge Date: 07/24/20 Primary care physician: Pablito Tirado MD Consults: 07/21/20 08:33 Consult to Anesthesiology Routine Comment: Consulting Provider: Anesthesiologist Reason for consultation: Regional block for post operative pain control 07/21/20 11:50 Consult to Discharge Planning Routine Comment: Consult to Physical Therapy Evaluate & Treat Comment: Physician Instructions: postop TKA protocol Consult to Respiratory Therapy Evaluate & Treat Comment: Physician Instructions: Evaluate and treat Discharge provider: Delonte John PA-C Exam Vital Signs (past 8 hours): - 07/24/20 04:23 07/24/20 07:57 07/24/20 08:00 Temperature 98.2 F 99.5 F Pulse Rate 88 92 H Respiratory Rate 18 15 Blood Pressure 141/74 H 133/82 Pulse Oximetry 97 97 Oxygen Delivery Method Room Air Oxygen Flow Rate 0 Narrative Exam Narrative: Pleasant 65-year-old male postop day 3 status post left total knee arthroplasty. Patient is resting comfortably in bed, is in no acute distress, is alert and oriented x3. Skin is warm and dry, and the skin surrounding the incision site is free of erythema, warmth, induration, or discharge. Aquacel dressing over the incision site is clean, dry, and intact. Good sensation appreciated throughout the bilateral lower extremities to light touch. Hip flexion performed bilaterally without difficulty or discomfort. Ankle dorsiflexion, plantar flexion, eversion, inversion performed bilaterally without difficulty or discomfort. Calves are soft nontender, negative Homans sign. DP pulses palpated bilaterally. No other signs of DVT appreciated. Const General: cooperative, healthy appearing and comfortable Resp Effort & Inspection: normal respiratory effort and able to speak in complete sentences Skin General: no rashes or lesions noted Objective Labs Result Diagrams: 07/22/20 04:56 [facility] Medical History Arthritis of knee (~1989) Chicken pox Colon polyps (~2002) Diabetes mellitus (~2011) Diverticulosis HLD (hyperlipidemia) Hypertension (~2010) Measles Osteoarthritis of left knee Seasonal allergies Shingles Thyroid nodule (~2011) Surgical History Anesthesia History of colonoscopy with polypectomy (02/28/18) History of thyroidectomy (~2009) Status post arthroscopy (~2008) Status post colonoscopy Family History Father Heart disease Hypertension Hyperlipidemia Mother Cancer Diabetes mellitus Brother Cancer Hypertension Brother Cancer Hypertension Sister Cancer Sister Cancer Social History household members: spouse Smoking Status: Never smoker alcohol intake: never Discharge Assessment & Plan Assessment and Plan Assessment: Patient is doing well. Plan of Treatment: Patient is to continue physical therapy in the outpatient setting following discharge from the hospital. First postoperative visit in clinic is scheduled for 2 weeks following discharge from the hospital. Current pain management regimen is to be continued as it is adequately controlled the patient's pain level. Aspirin 81 mg twice daily is to be continued for 6 weeks for DVT prophylaxis. Patient is to remain weight-bearing as tolerated with the assistance of a front wheeled walker. Aquacel dressing over the incision site is to remain clean, dry, and intact for 2 weeks. Contact the clinic if the dressing becomes damaged or soiled. Patient is to contact clinic with any concerns or questions. Any signs of increased redness, swelling, warmth, pain, or discharge from around the incision site should be reported to the clinic. Discharge Plan Discharge Plan Patient Disposition: Home Provider Discharge Comment: Patient cleared for discharge pending PT clearance. Discharge orders & Medications Prescriptions: New acetaminophen 325 mg Tablet 650 mg PO TID Qty: 90 RF: 0 aspirin 81 mg Tablet,Delayed Release (Dr/Ec) 81 mg PO BID Qty: 90 RF: 0 ondansetron 4 mg Tablet,Disintegrating 4 mg PO Q4HR PRN (Reason: Nausea) Qty: 30 RF: 0 oxycodone 10 mg Tablet 10 mg PO Q3HR PRN (Reason: Pain, Severe (7-10)) Qty: 42 RF: 0 tamsulosin [Flomax] 0.4 mg Capsule 0.4 mg PO DAILY Qty: 14 RF: 0 Continued aspirin 81 MG tablet,delayed release (DR/EC) 81 mg PO QDAY Qty: 0 RF: 0 glimepiride 2 mg tablet 2 mg PO QAM Qty: 90 RF: 0 amlodipine 5 mg tablet 10 mg PO BID RF: 0 naproxen sodium [Aleve] 220 mg Capsule 440 mg PO QPM PRN (Reason: Pain) RF: 0 metformin 500 mg tablet 500 mg PO BEDTIME RF: 0 metformin 500 mg tablet 1,000 mg PO DAILY RF: 0 atorvastatin [Lipitor] 10 mg tablet 10 mg PO BEDTIME RF: 0 lisinopril 40 mg tablet 40 mg PO BID RF: 0 Follow up/Referrals: Pablito Tirado MD [Primary Care Provider] - Diet/Activity/Treatments Diet: Diet as Tolerated Activity: Weight-bearing as tolerated with the assistance of a front wheeled walker. Skin/Wound/Dressing Care Report to your healthcare provider any signs of infection, such as:: chills, fever, night sweats, increased pain, unusual drainage and unusual redness Dressing: Aquacel dressing over the incision site is to remain intact for 2 weeks. Contact clinic if the dressing becomes damaged or soiled. Visit Report/Discharge Packet Instructions: DI for Heart Failure, DI for Knee Replacement, DI for Prescription Opioid Use Stand Alone Forms: Surgery Discharge Discharge Data Primary Care Provider: Pablito Tirado Quality VTE Deep Vein Thrombosis/Pulmonary Embolism Present on Admission: No
--- NOTE | 2020-07-24 09:15 | PT-IP ANOTE ---
Pt respectfully refused PT session stating he feels he is doing well and understands all ther ex and would like to save all his energy for getting home.
--- NOTE | 2020-07-24 10:09 | CM.DPC ---
DCP Cont: Patient is to be going home today. Went ahead and gave him a copy of his IMM. His will be picking him up. P: Patient is discharging home today. Kelly Baca RN/Unit Secy
--- NOTE | 2020-07-24 11:11 | PC.NURSE ---
Patient up with walker and tolerated well. Patient voided spontaneously again this morning and denies complaints. States pain is better managed today. Aquacel dressing is CDI. Discharge instructions reviewed with patient, he states understandign and has no further questions or concerns at this time. Escorted out via wheelchair by [employer] with all his belongings to go home with his . Patient states he has his follow up appointments scheduled. Instructed to call surgeon with questions or concerns or to seek emergent care in case of emergency.
== END 2020-07-24 11:13 | disposition home or self-care (01) | DRG 983 ==
LOC: OR 12:20 → AC 12:20
PROVIDERS: Admitting Provider Orthopaedic Surgery Adult Reconstructive Orthopaedic Surgery; PCP Family Medicine; Referring Provider Family Medicine; Visit Provider Orthopaedic Surgery Adult Reconstructive Orthopaedic Surgery
PROC: 0SRD0JZ Replacement of Left Knee Joint with Synthetic Substitute, Open Approach (ICD-10-PCS; CPT 27447; principal; 2020-07-21 08:45)
DX: R33.9 Retention of urine, unspecified (principal); M17.12 Unilateral primary osteoarthritis, left knee; M25.762 Osteophyte, left knee; E11.9 Type 2 diabetes mellitus without complications; Z79.84 Long term (current) use of oral hypoglycemic drugs; I10 Essential (primary) hypertension; E78.5 Hyperlipidemia, unspecified; Z20.822 Contact with and (suspected) exposure to COVID-19
CPT/HCPCS: 36415; 36592; 73560; 82962; 85014; 85018; 97110; 97162; 97530; C1776; G0378; J0690; J1100; J1170; J1885; J2250; J2270; J2274; J2405; J2704; J3010

== ENCOUNTER → 2021-06-02 09:16 | Outpatient (CLI) | payer OTHER, SELFPAY ==
[2020-07-21 12:01] VITALS: BMI 30.9
--- NOTE | 2021-06-02 09:18 | DI.RAD.S_ITS ---
PROCEDURE: XR KNEE LT 3V INDICATIONS: left knee pain TECHNIQUE: 3 views of the knee were acquired. COMPARISON: [facility] [place], CR, XR KNEE 4+ VIEWS LEFT, 08/03/2020, 11:52. [facility], CR, XR KNEE LT 1TO2V, 07/21/2020, 11:10. [facility], CR, KNEE 3V LEFT, 11/09/2015, 10:38. FINDINGS: Bones: No fractures or dislocations. There is total knee arthroplasty with prosthesis in anatomic alignment. No suspicious bony lesions. Soft tissues: Moderate joint effusion. No suspicious soft tissue calcifications. IMPRESSION: 1. Total knee arthroplasty with prosthesis in anatomic alignment. 2. Moderate knee joint effusion. Dictated by: Tayler Dillon M.D. on 06/02/2021 at 12:58 Approved by: Tayler Dillon M.D. on 06/02/2021 at 12:59
[2021-06-02 10:57] LABS: Add Manual Diff / Slide Review NO; Basophils Absolute Auto 100 /uL (0-100); Basophils Percent Auto 0.6 % (0-2); Eosinophils Absolute Auto 200 /uL (0-450); Eosinophils Percent Auto 1.9 % (2-4); Hematocrit 40.1 % (41-53); Hemoglobin 13.4 g/dL (13.5-17.5); Lymphocytes Absolute Auto 2200 /uL (1100-4500); Lymphocytes Percent Auto 26.6 % (25-40); Mean Corpuscular HGB Conc 33.4 % (30-36); Mean Corpuscular Hemoglobin 28.9 PG (26-34); Mean Corpuscular Volume 86.3 fL (80-100); Monocytes Absolute Auto 500 /uL (0-900); Monocytes Percent Auto 6.5 % (3-14); Neutrophils Absolute Auto 5300 /uL (1500-7000); Neutrophils Percent Auto 64.4 % (50-75); Platelet Count 222 X10^3/uL (150-400); Red Blood Cell Count 4.64 X10^6/uL (4.5-5.9); Red Cell Distribution Width 13.7 % (11.6-14.8); White Blood Cell Count 8.2 X10^3/uL (4.5-11.0)
[2021-06-02 11:10] LABS: Alanine Aminotransferase 31 IU/L (<50); Albumin 4.4 g/dL (3.5-5.0); Albumin Globulin Ratio 1.3 (1.0-2.8); Alkaline Phosphatase 75 U/L (38-126); Aspartate Aminotransferase 23 IU/L (17-59); BUN Creatinine Ratio 23.6 (6-22); Bilirubin Total 0.3 mg/dL (0.2-1.3); Blood Urea Nitrogen 21 mg/dL (9-20); Calcium 9.3 mg/dL (8.4-10.2); Carbon Dioxide 27 mmol/L (22-32); Chloride 108 mmol/L (98-107); Cholesterol 154 mg/dL (140-199); Estimated Glomerular Filt Rate > 60 mL/min (>60); Globulin 3.4 g/dL (1.7-4.1); Glucose 215 mg/dL (80-110); HDL Cholesterol 37 mg/dL (40-60); HEMOLYSIS < 15 (0-50); LDL Cholesterol Calculated 86 mg/dL (<100); Potassium 4.2 mmol/L (3.4-5.1); Sodium 142 mmol/L (137-145); Total Protein 7.8 g/dL (6.3-8.2); Triglycerides 154 mg/dL (35-150)
[2021-06-02 11:35] LABS: Prostate Specific Antigen Scrn 1.75 ng/mL (0.1-4.0)
[2021-06-02 14:58] LABS: Creatinine Urine Random 203.2 mg/dL
[2021-06-02 15:07] LABS: Microalbumi Creatinin Ratio Ur 53.6 ug/mg CR (<30); Microalbumin Urine Random 10.9 mg/dL (0-1.6)
== END ==
PROVIDERS: PCP Family Medicine; Referring Provider Family Medicine; Visit Provider Family Medicine
DX: M17.12 Unilateral primary osteoarthritis, left knee (principal); M25.462 Effusion, left knee; M25.562 Pain in left knee; M25.561 Pain in right knee; Z12.5 Encounter for screening for malignant neoplasm of prostate; I10 Essential (primary) hypertension; E11.9 Type 2 diabetes mellitus without complications; E78.2 Mixed hyperlipidemia; G89.29 Other chronic pain; Z96.652 Presence of left artificial knee joint
CPT/HCPCS: 36415; 73562; 80053; 80061; 82043; 82570; 83036; 85025; G0103

== ENCOUNTER → 2021-07-27 07:31 | Outpatient (CLI) | payer OTHER, SELFPAY ==
[2020-07-21 12:01] VITALS: BMI 30.9
--- NOTE | 2021-07-27 07:32 | DI.MRI.S_ITS ---
PROCEDURE: MR KNEE LT WO CON INDICATIONS: Knee pain, left TECHNIQUE: Noncontrast sagittal PD fast spin echo and T2 fast spin echo with fat saturation, sagittal 3-D FLASH with fat saturation; coronal T1 spin echo and PD fast spin echo with fat saturation, and axial PD fast spin echo with fat saturation through the knee. COMPARISON: [facility], CR, XR KNEE LT 3V, 06/02/2021, 9:13. FINDINGS: Image quality: Degraded by metallic artifact. Patient is status post knee arthroplasty. There is expected artifact secondary to tricompartmental knee arthroplasty. Visualized marrow signal is within normal limits. There is mild T2 signal elevation within the quadriceps and patellar tendons at the patellar insertion sites. Medial collateral ligament is grossly intact. Mild T2 signal elevation within the lateral collateral ligament at the femoral origin is present. There is a moderate knee joint effusion. There is a small amount of medial bursal fluid. IMPRESSION: 1. Limited examination secondary to knee arthroplasty artifact. 2. Quadriceps and patellar tendinopathy. 3. Low-grade partial thickness lateral collateral ligament tear. 4. Medial bursitis. 5. Knee joint effusion. Dictated by: Brooklyn Nevarez M.D. on 07/27/2021 at 9:19 Approved by: Brooklyn Nevarez M.D. on 07/27/2021 at 9:22
== END ==
PROVIDERS: PCP Family Medicine; Referring Provider Family Medicine; Visit Provider Family Medicine
DX: S83.422A Sprain of lateral collateral ligament of left knee, initial encounter (principal); M25.562 Pain in left knee; M70.52 Other bursitis of knee, left knee; M25.462 Effusion, left knee; Z96.652 Presence of left artificial knee joint
CPT/HCPCS: 73721

== ENCOUNTER → 2021-09-13 08:16 | Outpatient (CLI) | payer OTHER, SELFPAY ==
[2020-07-21 12:01] VITALS: BMI 30.9
[2021-09-13 09:47] LABS: Add Manual Diff / Slide Review NO; Basophils Absolute Auto 100 /uL (0-100); Basophils Percent Auto 0.7 % (0-2); Eosinophils Absolute Auto 300 /uL (0-450); Eosinophils Percent Auto 3.3 % (2-4); Hemoglobin 12.5 g/dL (13.5-17.5); Lymphocytes Absolute Auto 2300 /uL (1100-4500); Mean Corpuscular HGB Conc 34.6 % (30-36); Mean Corpuscular Hemoglobin 30.2 PG (26-34); Mean Corpuscular Volume 87.3 fL (80-100); Monocytes Absolute Auto 600 /uL (0-900); Monocytes Percent Auto 7.1 % (3-14); Neutrophils Absolute Auto 4600 /uL (1500-7000); Neutrophils Percent Auto 58.9 % (50-75); Platelet Count 225 X10^3/uL (150-400); Red Blood Cell Count 4.13 X10^6/uL (4.5-5.9); White Blood Cell Count 7.8 X10^3/uL (4.5-11.0)
[2021-09-13 10:02] LABS: Hemoglobin A1C% w Est Avg Glu 6.3 % (4.0-6.0)
[2021-09-13 10:05] LABS: Erythrocyte Sedimentation Rate 23 MM/HR (0-15)
[2021-09-13 10:27] LABS: C-Reactive Protein Quant < 0.5 mg/dL (<1.0)
[2021-09-13 16:12] LABS: Creatinine Urine Random 234.2 mg/dL
[2021-09-13 16:32] LABS: Microalbumi Creatinin Ratio Ur 11.9 ug/mg CR (<30); Microalbumin Urine Random 2.8 mg/dL (0-1.6)
== END ==
PROVIDERS: PCP Family Medicine; Referring Provider Orthopaedic Surgery; Visit Provider Orthopaedic Surgery
DX: E11.9 Type 2 diabetes mellitus without complications (principal); M25.562 Pain in left knee; E78.2 Mixed hyperlipidemia; I10 Essential (primary) hypertension
CPT/HCPCS: 36415; 82043; 82570; 83036; 85025; 85651; 86140

== ENCOUNTER → 2022-06-15 08:10 | Outpatient (CLI) | payer OTHER, SELFPAY ==
[2020-07-21 12:01] VITALS: BMI 30.9
[2022-06-16 09:34] LABS: x Labcorp Estim. Avg Glu (eAG) 177 mg/dL (.); x Labcorp Hemoglobin A1c 7.8 % (4.8-5.6)
== END ==
PROVIDERS: PCP Family Medicine; Referring Provider Family Medicine; Visit Provider Family Medicine
DX: E11.9 Type 2 diabetes mellitus without complications (principal)
CPT/HCPCS: 36415; 83036

== ENCOUNTER → 2022-09-21 07:59 | Outpatient (CLI) | payer OTHER, SELFPAY ==
[2020-07-21 12:01] VITALS: BMI 30.9
[2022-09-21 08:48] LABS: Add Manual Diff / Slide Review NO; Basophils Absolute Auto 0 /uL (0-100); Basophils Percent Auto 0.5 % (0-2); Eosinophils Absolute Auto 200 /uL (0-450); Eosinophils Percent Auto 2.6 % (2-4); Lymphocytes Absolute Auto 3100 /uL (1100-4500); Lymphocytes Percent Auto 32.7 % (25-40); Mean Corpuscular HGB Conc 34.1 % (30-36); Mean Corpuscular Hemoglobin 30.2 PG (26-34); Mean Corpuscular Volume 88.5 fL (80-100); Monocytes Absolute Auto 700 /uL (0-900); Monocytes Percent Auto 7.1 % (3-14); Neutrophils Absolute Auto 5400 /uL (1500-7000); Neutrophils Percent Auto 57.1 % (50-75); Platelet Count 225 X10^3/uL (150-400); Red Cell Distribution Width 13.3 % (11.6-14.8); White Blood Cell Count 9.4 X10^3/uL (4.5-11.0)
[2022-09-21 08:52] LABS: HEMOLYSIS < 15 (0-50)
[2022-09-21 09:04] LABS: Alanine Aminotransferase 25 IU/L (<50); Albumin 4.1 g/dL (3.5-5.0); Albumin Globulin Ratio 1.3 (1.0-2.8); Alkaline Phosphatase 70 U/L (38-126); Aspartate Aminotransferase 21 IU/L (17-59); Bilirubin Total 0.4 mg/dL (0.2-1.3); Blood Urea Nitrogen 17 mg/dL (9-20); Calcium 9.3 mg/dL (8.4-10.2); Carbon Dioxide 28 mmol/L (22-32); Chloride 105 mmol/L (98-107); Cholesterol 136 mg/dL (140-199); Estimated Glomerular Filt Rate > 60 mL/min (>60); Globulin 3.2 g/dL (1.7-4.1); Glucose 173 mg/dL (80-110); Potassium 4.2 mmol/L (3.4-5.1); Sodium 142 mmol/L (137-145); Total Protein 7.3 g/dL (6.3-8.2); Triglycerides 150 mg/dL (35-150)
[2022-09-21 09:46] LABS: Prostate Specific Antigen Scrn 1.98 ng/mL (0.1-4.0)
[2022-09-21 15:04] LABS: HDL Cholesterol 36 mg/dL (40-60); LDL Cholesterol Calculated 70 mg/dL (<100)
[2022-09-22 07:09] LABS: x Labcorp Estim. Avg Glu (eAG) 157 mg/dL (.); x Labcorp Hemoglobin A1c 7.1 % (4.8-5.6)
== END ==
PROVIDERS: PCP Family Medicine; Referring Provider Family Medicine; Visit Provider Family Medicine
DX: Z12.5 Encounter for screening for malignant neoplasm of prostate; E78.2 Mixed hyperlipidemia; E11.9 Type 2 diabetes mellitus without complications; I10 Essential (primary) hypertension; M25.561 Pain in right knee; M25.562 Pain in left knee
CPT/HCPCS: 36415; 80053; 80061; 83036; 85025; G0103

== ENCOUNTER → 2022-12-25 07:41 | Outpatient (CLI) | payer OTHER, SELFPAY ==
[2020-07-21 12:01] VITALS: BMI 30.9
[2022-12-25 08:34] LABS: Hemoglobin A1C% w Est Avg Glu 7.8 % (4.0-6.0)
== END ==
PROVIDERS: PCP Family Medicine; Referring Provider Family Medicine; Visit Provider Family Medicine
DX: E11.9 Type 2 diabetes mellitus without complications (principal); Z68.33 Body mass index [BMI] 33.0-33.9, adult; I10 Essential (primary) hypertension; E78.2 Mixed hyperlipidemia
CPT/HCPCS: 36415; 83036

== ENCOUNTER → 2023-03-26 07:29 | Outpatient (CLI) | payer OTHER, SELFPAY ==
[2020-07-21 12:01] VITALS: BMI 30.9
[2023-03-26 08:05] LABS: Add Manual Diff / Slide Review NO; Basophils Absolute Auto 0 /uL (0-100); Basophils Percent Auto 0.6 % (0-2); Eosinophils Absolute Auto 400 /uL (0-450); Eosinophils Percent Auto 4.1 % (2-4); Hematocrit 39.1 % (41-53); Hemoglobin 13.3 g/dL (13.5-17.5); Lymphocytes Absolute Auto 3200 /uL (1100-4500); Lymphocytes Percent Auto 36.5 % (25-40); Mean Corpuscular HGB Conc 33.9 % (30-36); Mean Corpuscular Hemoglobin 29.3 PG (26-34); Mean Corpuscular Volume 86.5 fL (80-100); Monocytes Absolute Auto 600 /uL (0-900); Monocytes Percent Auto 6.7 % (3-14); Neutrophils Absolute Auto 4500 /uL (1500-7000); Neutrophils Percent Auto 52.1 % (50-75); Platelet Count 239 X10^3/uL (150-400); Red Blood Cell Count 4.53 X10^6/uL (4.5-5.9); Red Cell Distribution Width 14.2 % (11.6-14.8); White Blood Cell Count 8.7 X10^3/uL (4.5-11.0)
[2023-03-26 08:18] LABS: Hemoglobin A1C% w Est Avg Glu 7.1 % (4.0-6.0)
== END ==
PROVIDERS: PCP Family Medicine; Referring Provider Family Medicine; Visit Provider Family Medicine
DX: I10 Essential (primary) hypertension (principal); E11.9 Type 2 diabetes mellitus without complications; E78.2 Mixed hyperlipidemia
CPT/HCPCS: 36415; 83036; 85025

== ENCOUNTER → 2023-06-20 07:27 | Outpatient (CLI) | payer OTHER, SELFPAY ==
[2023-03-29 08:18] VITALS: BMI 30.9
[2023-06-20 08:53] LABS: Hemoglobin A1C% w Est Avg Glu 7.6 % (4.0-6.0)
[2023-06-20 09:04] LABS: Alanine Aminotransferase 19 IU/L (<50); Albumin 4.4 g/dL (3.5-5.0); Albumin Globulin Ratio 1.6 (1.0-2.8); Alkaline Phosphatase 62 U/L (38-126); Aspartate Aminotransferase 20 IU/L (17-59); BUN Creatinine Ratio 18.8 (6-22); Bilirubin Total 0.7 mg/dL (0.2-1.3); Blood Urea Nitrogen 19 mg/dL (9-20); Calcium 9.6 mg/dL (8.4-10.2); Carbon Dioxide 25 mmol/L (22-32); Chloride 106 mmol/L (98-107); Estimated Glomerular Filt Rate > 60 mL/min (>60); Globulin 2.7 g/dL (1.7-4.1); Glucose 159 mg/dL (80-110); HEMOLYSIS < 15 (0-50); Potassium 4.4 mmol/L (3.4-5.1); Sodium 140 mmol/L (137-145); Total Protein 7.1 g/dL (6.3-8.2)
== END ==
PROVIDERS: PCP Family Medicine; Referring Provider Family Medicine; Visit Provider Family Medicine
DX: E11.9 Type 2 diabetes mellitus without complications (principal); I10 Essential (primary) hypertension; E78.2 Mixed hyperlipidemia
CPT/HCPCS: 36415; 80053; 83036

== ENCOUNTER 2023-08-21 06:28 | Day surgery (SDC) | payer OTHER, SELFPAY ==
[2023-03-29 08:18] VITALS: BMI 30.9
--- NOTE | 2023-08-21 | PATH_ITS ---
[facility] Accession Number: [id number] No. of containers..01 Tissue . 01 Material submitted: . colon - TRANSVERSE POLYP . 01 Diagnosis: TRANSVERSE POLYP: Tubular adenoma. [facility] 08/27/2023 1138 Local . 01 Electronically signed: . Ziyad Burnett MD, Pathologist NPI- [id number] . 01 Gross description: . Received in formalin with two patient identifiers and transverse polyp, is a single mccoy soft tissue fragment, 0.4 cm in greatest dimension. Submitted in A1. ([id number]) /MRV 08/27/2023 1138 Local . 01 Pathologist provided ICD-10: D12.3 . 01 CPT . 781597 Specimen Comment: A courtesy copy of this report has been sent to [phone] Performed at: [address] [facility] [id number] MD Ziyad Burnett MD Phone: [phone]
[2023-08-21 06:55] VITALS: BP 155/76; PULSE 90; RESP 16; TEMP 36.8; O2SAT 99
--- NOTE | 2023-08-21 07:45 | P.HP_ITS ---
History of Present Illness History of Present Illness Date Patient Seen: 08/21/23 Time Patient Seen: 07:45 Chief complaint: SDC Narrative: 68-year-old male here for screening colonoscopy. Family history of colon cancer in older brother. Last colonoscopy 5 years ago. Personal history of colonic polyps. No abdominal concerns today. [facility] Medical History Arthritis of knee (~1989) Chicken pox Colon polyps (~2002) Diabetes mellitus (~2011) Diverticulosis HLD (hyperlipidemia) Hypertension (~2010) Measles Osteoarthritis of left knee Seasonal allergies Shingles Thyroid nodule (~2011) Surgical History Anesthesia History of colonoscopy with polypectomy (02/28/18) History of thyroidectomy (~2009) Status post arthroscopy (~2008) Status post colonoscopy Family History Father Heart disease Hypertension Hyperlipidemia Mother Cancer Diabetes mellitus Brother Cancer Hypertension Brother Cancer Hypertension Sister Cancer Sister Cancer Social History household members: spouse Smoking Status: Never smoker alcohol intake: never Meds Home Medications and Allergies Home Medications Medication Instructions Recorded Confirmed Type aspirin 81 mg tablet,delayed 81 mg PO QDAY ##0 10/04/10 08/21/23 History release naproxen sodium 220 mg capsule 440 mg PO QPM PRN Pain 07/13/20 08/21/23 History (Aleve) acetaminophen 325 mg tablet 650 mg (2 x 325 mg) PO TID #90 tabs 07/24/20 08/21/23 Rx Parking Permit... See Rx Instructions .Route 06/28/21 06/26/23 Rx .COMPLEX #1 unit Lipitor 10 mg tablet (atorvastatin) See Rx Instructions .Route 12/12/22 08/21/23 Rx .COMPLEX #90 tabs metformin 1,000 mg tablet,extended 1,000 mg PO BID #180 tabs 03/29/23 08/21/23 Rx release 24hr (osmotic) empagliflozin 25 mg tablet 25 mg PO DAILY #90 tabs 07/02/23 08/21/23 Rx (Jardiance) amlodipine 5 mg tablet 10 mg (2 x 5 mg) PO DAILY #90 tabs 08/07/23 08/21/23 Rx lisinopril 40 mg tablet 40 mg PO BID #90 tabs 08/07/23 08/21/23 Rx Allergies Allergy/AdvReac Type Severity Reaction Status Date / Time cat pelt standardized Allergy Mild runny Verified 08/21/23 07:04 allergenic ex nose, rash [CAT PELT STANDARDIZED EXTRACT] Milk Containing Products Allergy Mild Verified 08/21/23 07:04 (Dairy) [MILK CONTAINING PRODUCTS] Exam Vital Signs (past 8 hours): - 08/21/23 06:55 Temperature 98.2 F Pulse Rate 90 Respiratory Rate 16 Blood Pressure 155/76 H Pulse Oximetry 99 Oxygen Delivery Method Room Air Oxygen Delivery Method Room Air Narrative Exam Narrative: General adult man alert oriented no acute distress Chest nonlabored respiration Extremities warm well perfused Assessment & Plan Assessment & Plan narrative: The patient requires colorectal screening and colonoscopy is recommended. Technical details were discussed. Risks, benefits, alternatives explained. Risks including but not limited to myocardial infarction, aspiration, bleeding, pain, missed lesion, incomplete examination, need for further radiographic studies, intestinal injury, and need for major abdominal surgery were discussed. All questions were answered to their satisfaction, and they are in agreement with this plan.
--- NOTE | 2023-08-21 07:45 | P.OP.COLON_ITS ---
Operative Date/Time/Diagnoses Date of procedure: 08/21/23 Time of procedure: 07:46 Pre-op diagnosis: Family history of colon cancer Personal history of colonic polyps Procedure & Clinicians Study performed: Screening colonoscopy Same procedure as scheduled: Yes Indications: Colorectal screening Family history of colon cancer Personal history of colonic polyps Surgeon: Jas Daniels Procedure Notes Procedure in detail: The history and physical was performed/updated and the patient is ASA class is 2. The procedure was discussed in detail with the patient. Potential risks complications including infection, bleeding, missed diagnosis, perforation, need for surgery, and were explained. Their questions were answered and informed consent was obtained. Patient was brought to the procedure room and placed standard monitoring equipment. The patient's vital signs were monitored continuously throughout the entire procedure. Prior to starting time-out was performed. The patient was placed in the left lateral recumbent position. Procedural sedation was administered by anesthesia. Examination began with a thorough inspection of the perianal area there was no evidence of fissures, fistulae, external hemorrhoids or cutaneous malignancy. The colonoscopy scope was then placed into the anal canal and was advanced to the cecum, which was identified by the ileocecal valve, the appendiceal orifice and the confluence of the taenia. The scope was then slowly withdrawn examining colon thoroughly in all directions, irrigating it of any residual stool. The scope was retroflexed within the rectum The patient tolerated the procedure well. They will be discharged once criteria are met. The prep was of good/excellent quality. The withdrawl time was 7 minutes. FINDINGS * Extensive diverticulosis throughout the colon * Transverse colon polyp 3 mm removed with biopsy forceps Specimen(s): other (Transverse colon polyp) Impression: Colonic polyp x1 Diverticulosis Post-procedure Recommendations: Colonoscopy in 5 years Disposition: same day surgery
[2023-08-21 08:07] VITALS: BP 100/61; PULSE 80; RESP 14; TEMP 36.1; O2SAT 94
[2023-08-21 08:12] VITALS: BP 104/66; PULSE 75; RESP 14; O2SAT 98
[2023-08-21 08:18] VITALS: BP 124/76; PULSE 83; RESP 18; TEMP 36.2; O2SAT 96
[2023-08-21 08:21] VITALS: BP 114/79; PULSE 87; RESP 16; TEMP 36.3; O2SAT 97
== END 2023-08-21 08:30 | disposition home or self-care (01) ==
PROVIDERS: PCP Family Medicine; Referring Provider Surgery; Visit Provider Surgery
PROC: 0DJD8ZZ Inspection of Lower Intestinal Tract, Via Natural or Artificial Opening Endoscopic (ICD-10-PCS; CPT 45378; principal; 2023-08-21 07:45)
DX: Z12.11 Encounter for screening for malignant neoplasm of colon (principal); Z86.010 Personal history of colon polyps; Z80.0 Family history of malignant neoplasm of digestive organs; K57.30 Diverticulosis of large intestine without perforation or abscess without bleeding; D12.3 Benign neoplasm of transverse colon
CPT/HCPCS: 45380; 82962; J2704

== ENCOUNTER → 2023-09-21 07:05 | Outpatient (CLI) | payer OTHER, SELFPAY ==
[2023-03-29 08:18] VITALS: BMI 30.9
[2023-09-21 09:12] LABS: Hemoglobin A1C% w Est Avg Glu 7.3 % (4.0-6.0)
[2023-09-21 09:16] LABS: Creatinine Urine Random 80.16 mg/dL
[2023-09-21 09:21] LABS: Microalbumin Urine Random 2.2 mg/dL (0-1.6)
== END ==
PROVIDERS: PCP Family Medicine; Referring Provider Family Medicine; Visit Provider Family Medicine
DX: E11.9 Type 2 diabetes mellitus without complications (principal)
CPT/HCPCS: 36415; 82043; 82570; 83036

== ENCOUNTER → 2023-12-25 07:02 | Outpatient (CLI) | payer OTHER, SELFPAY ==
[2023-03-29 08:18] VITALS: BMI 30.9
[2023-12-25 07:50] LABS: Hemoglobin A1C% w Est Avg Glu 6.3 % (4.0-6.0)
[2023-12-25 07:59] LABS: Alanine Aminotransferase 15 IU/L (<50); Albumin 4.4 g/dL (3.5-5.0); Albumin Globulin Ratio 1.4 (1.0-2.8); Alkaline Phosphatase 75 U/L (38-126); Aspartate Aminotransferase 16 IU/L (17-59); BUN Creatinine Ratio 25.8 (6-22); Bilirubin Total 0.6 mg/dL (0.2-1.3); Blood Urea Nitrogen 32 mg/dL (9-20); Calcium 10.7 mg/dL (8.4-10.2); Carbon Dioxide 24 mmol/L (22-32); Chloride 105 mmol/L (98-107); Cholesterol 165 mg/dL (140-199); Estimated Glomerular Filt Rate > 60 mL/min (>60); Globulin 3.1 g/dL (1.7-4.1); Glucose 155 mg/dL (80-110); HDL Cholesterol 39 mg/dL (40-60); HEMOLYSIS < 15 (0-50); LDL Cholesterol Calculated 99 mg/dL (<100); Potassium 4.2 mmol/L (3.4-5.1); Sodium 141 mmol/L (137-145); Total Protein 7.5 g/dL (6.3-8.2); Triglycerides 135 mg/dL (35-150)
[2023-12-25 08:29] LABS: Prostate Specific Antigen Scrn 1.91 ng/mL (0.1-4.0)
[2023-12-25 08:30] LABS: TSH w/ Reflex to FT4 1.52 uIU/mL (0.47-4.68)
[2023-12-26 03:36] LABS: Apolipoprotein B 90 mg/dL (<90)
== END ==
PROVIDERS: PCP Family Medicine; Referring Provider Family Medicine; Visit Provider Family Medicine
DX: E11.9 Type 2 diabetes mellitus without complications (principal); I10 Essential (primary) hypertension; Z12.5 Encounter for screening for malignant neoplasm of prostate; E78.2 Mixed hyperlipidemia; Z68.33 Body mass index [BMI] 33.0-33.9, adult; M25.561 Pain in right knee; M25.562 Pain in left knee; G89.29 Other chronic pain
CPT/HCPCS: 36415; 80053; 80061; 82172; 83036; 84443; G0103

== ENCOUNTER → 2024-03-20 07:05 | Outpatient (CLI) | payer OTHER, SELFPAY ==
[2023-03-29 08:18] VITALS: BMI 30.9
[2024-03-20 07:30] LABS: Add Manual Diff / Slide Review NO; Basophils Absolute Auto 0 /uL (0-100); Basophils Percent Auto 0.4 % (0-2); Eosinophils Absolute Auto 300 /uL (0-450); Eosinophils Percent Auto 3.6 % (2-4); Hemoglobin 13.8 g/dL (13.5-17.5); Lymphocytes Absolute Auto 3800 /uL (1100-4500); Lymphocytes Percent Auto 43.4 % (25-40); Mean Corpuscular HGB Conc 32.9 % (30-36); Mean Corpuscular Hemoglobin 29.5 PG (26-34); Mean Corpuscular Volume 89.6 fL (80-100); Monocytes Absolute Auto 700 /uL (0-900); Monocytes Percent Auto 8.2 % (3-14); Neutrophils Absolute Auto 3900 /uL (1500-7000); Neutrophils Percent Auto 44.4 % (50-75); Platelet Count 250 X10^3/uL (150-400); Red Blood Cell Count 4.69 X10^6/uL (4.5-5.9); White Blood Cell Count 8.7 X10^3/uL (4.5-11.0)
[2024-03-20 08:13] LABS: Hemoglobin A1C% w Est Avg Glu 5.7 % (4.0-6.0)
[2024-03-20 08:14] LABS: Alanine Aminotransferase 29 IU/L (<50); Albumin 4.7 g/dL (3.5-5.0); Albumin Globulin Ratio 1.7 (1.0-2.8); Alkaline Phosphatase 58 U/L (38-126); Aspartate Aminotransferase 25 IU/L (17-59); BUN Creatinine Ratio 28.7 (6-22); Bilirubin Total 0.4 mg/dL (0.2-1.3); Blood Urea Nitrogen 31 mg/dL (9-20); Calcium 9.8 mg/dL (8.4-10.2); Carbon Dioxide 23 mmol/L (22-32); Chloride 106 mmol/L (98-107); Estimated Glomerular Filt Rate > 60 mL/min (>60); Globulin 2.8 g/dL (1.7-4.1); Glucose 134 mg/dL (80-110); HEMOLYSIS < 15 (0-50); Potassium 4.1 mmol/L (3.4-5.1); Sodium 141 mmol/L (137-145); Total Protein 7.5 g/dL (6.3-8.2)
[2024-03-21 14:39] LABS: Calcium 9.6 mg/dL (8.6-10.2); Parathyroid Hormone, Intact 29 pg/mL (15-65)
== END ==
PROVIDERS: PCP Family Medicine; Referring Provider Family Medicine; Visit Provider Family Medicine
DX: I10 Essential (primary) hypertension (principal); E11.9 Type 2 diabetes mellitus without complications; E78.2 Mixed hyperlipidemia; E83.52 Hypercalcemia
CPT/HCPCS: 36415; 80053; 82310; 83036; 83970; 85025

== ENCOUNTER → 2024-07-01 06:58 | Outpatient (CLI) | payer OTHER, SELFPAY ==
[2023-03-29 08:18] VITALS: BMI 30.9
[2024-07-01 07:52] LABS: Add Manual Diff / Slide Review NO; Basophils Absolute Auto 0 /uL (0-100); Basophils Percent Auto 0.5 % (0-2); Eosinophils Absolute Auto 100 /uL (0-450); Eosinophils Percent Auto 1.9 % (2-4); Hemoglobin 12.9 g/dL (13.5-17.5); Lymphocytes Absolute Auto 2400 /uL (1100-4500); Lymphocytes Percent Auto 38.1 % (25-40); Mean Corpuscular Hemoglobin 30.3 PG (26-34); Mean Corpuscular Volume 89.1 fL (80-100); Monocytes Absolute Auto 400 /uL (0-900); Monocytes Percent Auto 6.9 % (3-14); Neutrophils Absolute Auto 3400 /uL (1500-7000); Neutrophils Percent Auto 52.6 % (50-75); Platelet Count 207 X10^3/uL (150-400); Red Blood Cell Count 4.26 X10^6/uL (4.5-5.9); Red Cell Distribution Width 14.3 % (11.6-14.8); White Blood Cell Count 6.4 X10^3/uL (4.5-11.0)
[2024-07-01 08:35] LABS: Hemoglobin A1C% w Est Avg Glu 5.8 % (4.0-6.0)
[2024-07-01 08:39] LABS: Alanine Aminotransferase 20 IU/L (<50); Albumin 4.2 g/dL (3.5-5.0); Albumin Globulin Ratio 1.8 (1.0-2.8); Alkaline Phosphatase 52 U/L (38-126); Aspartate Aminotransferase 22 IU/L (17-59); BUN Creatinine Ratio 22.8 (6-22); Bilirubin Total 0.7 mg/dL (0.2-1.3); Blood Urea Nitrogen 23 mg/dL (9-20); Calcium 9.7 mg/dL (8.4-10.2); Carbon Dioxide 25 mmol/L (22-32); Chloride 106 mmol/L (98-107); Cholesterol 97 mg/dL (140-199); Estimated Glomerular Filt Rate > 60 mL/min (>60); Globulin 2.4 g/dL (1.7-4.1); Glucose 118 mg/dL (70-99); HDL Cholesterol 48 mg/dL (40-60); HEMOLYSIS < 15 (0-50); LDL Cholesterol Calculated 38 mg/dL (<100); Potassium 4.4 mmol/L (3.4-5.1); Sodium 141 mmol/L (137-145); Total Protein 6.6 g/dL (6.3-8.2); Triglycerides 56 mg/dL (35-150)
[2024-07-01 09:09] LABS: Prostate Specific Antigen Scrn 1.72 ng/mL (0.1-4.0)
[2024-07-01 10:29] LABS: Creatinine Urine Random 176.41 mg/dL
[2024-07-01 10:46] LABS: Microalbumin Urine Random 1.3 mg/dL (0-1.6)
== END ==
PROVIDERS: PCP Family Medicine; Referring Provider Family Medicine; Visit Provider Family Medicine
DX: I10 Essential (primary) hypertension (principal); E11.9 Type 2 diabetes mellitus without complications; Z12.5 Encounter for screening for malignant neoplasm of prostate; E78.2 Mixed hyperlipidemia
CPT/HCPCS: 36415; 80053; 80061; 82043; 82570; 83036; 84443; 85025; G0103

== ENCOUNTER → 2024-09-30 06:58 | Outpatient (CLI) | payer OTHER, SELFPAY ==
[2023-03-29 08:18] VITALS: BMI 30.9
[2024-09-30 08:16] LABS: Alanine Aminotransferase 19 IU/L (<50); Albumin 4.3 g/dL (3.5-5.0); Albumin Globulin Ratio 1.5 (1.0-2.8); Alkaline Phosphatase 66 U/L (38-126); Blood Urea Nitrogen 34 mg/dL (9-20); Calcium 9.7 mg/dL (8.4-10.2); Carbon Dioxide 27 mmol/L (22-32); Chloride 104 mmol/L (98-107); Estimated Glomerular Filt Rate > 60 mL/min (>60); Globulin 2.9 g/dL (1.7-4.1); Glucose 127 mg/dL (70-99); HEMOLYSIS < 15 (0-50); Potassium 3.9 mmol/L (3.4-5.1); Sodium 141 mmol/L (137-145); Total Protein 7.2 g/dL (6.3-8.2)
[2024-09-30 10:08] LABS: Microalbumi Creatinin Ratio Ur 9.0 ug/mg CR (<30)
[2024-09-30 14:20] LABS: Hemoglobin A1C% w Est Avg Glu 5.9 % (4.0-6.0)
== END ==
PROVIDERS: PCP Family Medicine; Referring Provider Family Medicine; Visit Provider Family Medicine
DX: E11.9 Type 2 diabetes mellitus without complications (principal); I10 Essential (primary) hypertension; E78.2 Mixed hyperlipidemia
CPT/HCPCS: 36415; 80053; 82043; 82570; 83036

== ENCOUNTER → 2024-12-20 08:00 | Outpatient (CLI) | payer OTHER, SELFPAY ==
[2023-03-29 08:18] VITALS: BMI 30.9
[2024-12-20 09:16] LABS: Add Manual Diff / Slide Review NO; Hematocrit 40.8 % (41-53); Hemoglobin 13.8 g/dL (13.5-17.5); Lymphocytes Absolute Auto 2900 /uL (1100-4500); Mean Corpuscular HGB Conc 33.9 % (30-36); Mean Corpuscular Hemoglobin 29.4 PG (26-34); Mean Corpuscular Volume 86.9 fL (80-100); Platelet Count 184 X10^3/uL (150-400)
[2024-12-20 09:45] LABS: Hemoglobin A1C% w Est Avg Glu 5.7 % (4.0-6.0)
[2024-12-20 09:47] LABS: Alanine Aminotransferase 17 IU/L (<50); Albumin 4.4 g/dL (3.5-5.0); Albumin Globulin Ratio 1.4 (1.0-2.8); Alkaline Phosphatase 62 U/L (38-126); Blood Urea Nitrogen 20 mg/dL (9-20); Calcium 9.8 mg/dL (8.4-10.2); Carbon Dioxide 27 mmol/L (22-32); Chloride 102 mmol/L (98-107); Cholesterol 97 mg/dL (140-199); Estimated Glomerular Filt Rate > 60 mL/min (>60); Globulin 3.1 g/dL (1.7-4.1); Glucose 125 mg/dL (70-99); HDL Cholesterol 51 mg/dL (40-60); HEMOLYSIS < 15 (0-50); Potassium 4.7 mmol/L (3.4-5.1); Sodium 140 mmol/L (137-145); Total Protein 7.5 g/dL (6.3-8.2); Triglycerides 71 mg/dL (35-150)
== END ==
PROVIDERS: PCP Family Medicine; Referring Provider Family Medicine; Visit Provider Family Medicine
DX: I10 Essential (primary) hypertension (principal); E11.9 Type 2 diabetes mellitus without complications; E78.2 Mixed hyperlipidemia; N13.8 Other obstructive and reflux uropathy; N40.1 Benign prostatic hyperplasia with lower urinary tract symptoms
CPT/HCPCS: 36415; 80053; 80061; 82172; 83036; 85025